=== PATIENT | male | born 1935 | race Caucasian/White ===

== ENCOUNTER 2018-08-03 11:45 | Inpatient (IN) | payer OTHER ==
--- NOTE | 2018-08-03 12:03 | PDOC ---
History of Present Illness - General Chief Complaint: Shortness of Breath Stated Complaint: Shortness of Breath Time Seen by Provider: 08/03/18 12:02 - History of Present Illness Initial Comments: 08/03/18 13:26 The patient is an 83 year old male with a history of HTN, HLD, CAD, RI, COPD who presents for evaluation of shortness of breath and lightheadedness. The patient reports a several week history of gradually worsening shortness of breath worse with exertion despite use of his home inhalers. He notes an associated worsening non-productive cough as well. Throughout this period of time, he also notes lightheadedness and dizziness that is worse with standing and bending over. He was being evaluated by his primary care provider Dr. Ortiz who referred the patient to the ED for further evaluation and admission. The patient otherwise denies fevers, chills, chest pain, nausea, vomiting, abdominal pain, or changes with urination or bowel movements. Past History - Past Medical History Allergies/Adverse Reactions: Allergies Allergy/AdvReac Type Severity Reaction Status Date / Time No Known Drug Allergies Allergy Verified 08/03/18 12:10 Home Medications: Ambulatory Orders Albuterol Sulfate [Proair Hfa] 2 puff IH Q4H PRN 08/03/18 Aspirin [Aspirin EC] 81 mg PO DAILY 08/03/18 Budesonide/Formeterol Fumarate [SYMBICORT 160/4.5mcg -] 1 inh PO BID 08/03/18 Fluticasone Propionate [Flonase Allergy Relief] 9.9 ml NS TID PRN 08/03/18 Pravastatin Sodium 20 mg PO HS 08/03/18 Anemia: No Asthma: No Cancer: No Cardiac Disorders: Yes (RI X 3; CAD) CVA: No COPD: Yes (no meds, continues to smoke) CHF: No Dementia: No Diabetes: No GI Disorders: No Disorders: No HTN: Yes Hypercholesterolemia: Yes Liver Disease: No Seizures: No Thyroid Disease: No - Surgical History Abdominal Surgery: No Appendectomy: No Cardiac Surgery: Yes (CABG; JUAN A CAROTID ENDARTERECTOMY) Cholecystectomy: No Lung Surgery: No Neurologic Surgery: No Orthopedic Surgery: No - Suicide/Smoking/Psychosocial Hx Smoking Status: No Smoking History: Current every day smoker Have you smoked in the past 12 months: Yes Number of Cigarettes Smoked Daily: 20 Cigars Per Day: 10 'Breaking Loose' booklet given: 10/07/11 Hx Alcohol Use: No Drug/Substance Use Hx: No Substance Use Type: None Hx Substance Use Treatment: No Review of Systems - Review of Systems Comments:: 08/03/18 13:28 Constitutional: No fevers, chills, fatigue, malaise HEENT: No Rhinorrhea, nasal congestion, visual changes Cardiovascular: Lightheadedness. Pre-syncope. No chest pain, syncope, palpitations, Respiratory: Non-productive cough, SOB. No Hemoptysis, Gastrointestinal: No Abdominal pain, Nausea, Vomiting, Constipation, Diarrhea, Melena Genitourinary: No Dysuria, Frequency, Urgency, Hesitancy, Hematuria, Flank pain Musculoskeletal: No Myalgia, arthralgia Skin: No rashes, itching, bruising, pallor Neurologic: No Headache, Dizziness, Numbness, Weakness, or Tingling Psychiatric: No Hallucinations. No SI or HI *Physical Exam - Physical Exam Comments: 08/03/18 13:30 General Appearance: Nourished. No Apparent Distress HEENT: No Pharyngeal Erythema, Tonsillar Exudate, Tonsillar Erythema, or Nystagmus. Neck: No Cervical Lymphadenopathy Respiratory/Chest: Normal Breath Sounds. Rales auscultated at the right lung base. No Rhonchi, Wheezing Cardiovascular: Regular Rhythm, Regular Rate. No Murmur, Gallops, Rubs Gastrointestinal/Abdominal: Normal Bowel Sounds, Soft. No Guarding, Rebound, Tenderness Musculoskeletal: No CVA Tenderness Extremity: Normal Capillary Refill Integumentary: Normal Color, Dry, Warm Neurologic: Fully Oriented, Alert, Normal Mood/Affect, Normal Response, Heart Score/ECG Review #1 ECG reviewed & interpreted by me at: 13:31 08/03/18 13:31 HR 105 WV 184 QRS 134 QTc 502 Sinus Tachycardia with premature supraventricular complexes Right bundle branch block No Acute ST Changes ED Treatment Course - LABORATORY CBC & Chemistry Diagram: 08/03/18 12:05 08/03/18 12:07 Medical Decision Making - Medical Decision Making 08/03/18 13:32 The patient is an 83 year old male with a history of HTN, HLD, CAD, RI, COPD who presents for evaluation of shortness of breath and lightheadedness. Differential includes but is not limited to: COPD, ACS, CHF, Pneumonia, Infectious, Metabolic Derangement. Given the patient's history and physical exam, we will obtain a cbc, cmp, troponin, bnp, ekg, chest plain film to evaluate further. We will treat with duonebs and solumedrol in the meantime and continue to monitor and reassess while here in the ED. 08/03/18 13:33 CBC, cmp, troponin are unremarkable. Chest plain film demonstrates questionable right base findings as read by our radiologist. We will obtain a CT chest to evaluate further. 08/03/18 14:[address] demonstrates right lower lobe infiltrate as read by our radiologist. We will treat the patient with vanc and zosyn given his frequent time spent caring for his in a NH. The patient will require admission for further management. We discussed the case with the admitting team who accepted the patient for admission. *DC/Admit/Observation/Transfer Diagnosis at time of Disposition: COPD (chronic obstructive pulmonary disease) Qualifiers: COPD type: unspecified COPD Qualified Code(s): J44.9 - Chronic obstructive pulmonary disease, unspecified Pneumonia Qualifiers: Pneumonia type: due to unspecified organism Laterality: unspecified laterality Lung location: unspecified part of lung Qualified Code(s): J18.9 - Pneumonia, unspecified organism - Discharge Dispostion Condition at time of disposition: Stable Decision to Admit order: Yes - Referrals - Patient Instructions - Post Discharge Activity
[2018-08-03 12:17] LABS: BASO % 0.5 % (0-2.0); EOS % 2.2 % (0-4.5); HEMATOCRIT 43.9 % (35.4-49); HEMOGLOBIN 14.8 GM/dL (11.7-16.9); LYMPH % 14.5 % (8-40); MCH 31.1 pg (25.7-33.7); MCHC 33.7 g/dl (32.0-35.9); MEAN CELL VOLUME 92.3 fl (80-96); MONO % 9.6 % (3.8-10.2); NEUT % 73.2 % (42.8-82.8); PLATELET COUNT 151 K/MM3 (134-434); RBC 4.76 M/mm3 (4.00-5.60); RDW 14.8 % (11.9-15.9); WHITE BLOOD COUNT 6.6 K/mm3 (4.0-10.0)
[2018-08-03] MEDS ORDERED: ALBUTEROL SO4 2.5/IPRATROPIUM 0.5 INH SOL 3 ML VIAL.NEB. NEB ONE ×3 (12:34→13:46)
[2018-08-03] MEDS ORDERED: methylPREDNISolone NA SUCC 125 MG/2 ML VIAL IVPUSH ONE (12:49)
[2018-08-03 12:53] LABS: ALBUMIN 3.4 g/dl (3.4-5.0); ALK PHOS 115 U/L (45-117); ANION GAP 10 MMOL/L (8-16); BILIRUBIN,TOTAL 0.6 mg/dL (0.2-1); CALCIUM 8.9 mg/dL (8.5-10.1); CHLORIDE 104 mmol/L (98-107); CO2 23 mmol/L (21-32); GLUCOSE,RANDOM 94 mg/dL (74-106); N-TERMINAL BNP 718.3 pg/ml (5-450); POTASSIUM 3.7 mmol/L (3.5-5.1); SGOT/AST 24 U/L (15-37); SGPT/ALT 21 U/L (13-61); SODIUM 137 mmol/L (136-145); TOT PROT 7.2 g/dl (6.4-8.2)
[2018-08-03] MEDS ORDERED: methylPREDNISolone NA SUCC 125 MG/2 ML VIAL ONE (15:06)
[2018-08-03] MEDS ORDERED: PIPERACILLIN/TAZOB 4.5 GM 4.5 GM in DEXTROSE 5%-WATER 100 ML IVPB ONE (15:12)
[2018-08-03] MEDS ORDERED: VANCOMYCIN 1,000 MG in DEXTROSE 5%-WATER - 250 ML IVPB ONE (15:12)
--- NOTE | 2018-08-03 15:31 | PDOC ---
Documentation entered by Danitza Mendoza SCRIBE, acting as scribe for Toma Tran MD. Toma Tran MD: This documentation has been prepared by the edisonibe, Danitza Mendoza SCRIBE, under my direction and personally reviewed by me in its entirety. I confirm that the documentation accurately reflects all work, treatment, procedures, and medical decision making performed by me. Attending Attestation - Resident Resident Name: Kyle Vasquez - ED Attending Attestation I have performed the following: I have examined & evaluated the patient, The case was reviewed & discussed with the resident, I agree w/resident's findings & plan, Exceptions are as noted - HPI HPI: 08/03/18 14:25 The patient is an 83-year-old male with a past medical history significant for COPD, HTN, HLD presents to the emergency department with worsening shortness of breath and lightheadedness. The patient reports hes been having 4 years of intermittent shortness of breath, which further exacerbated in the last 2 weeks. The patient reports following up with Dr. Huber, who prescribed the patient medication. The patient reports secondary to medication davey he was unable to purchase the medication. The patient reports hes also been having lightheadedness with standing up and moving around. The patient reports following up with PCP Dr. Ortiz, who has noticed some periods of hypotension and referred the patient to the ER for further management. The patient reports in a matter of 2 months, he has lost 74 pounds. Denies fever. Allergies: nkda Surgical History: Per patient, CABG, multiple biopsies Social history: Current everyday smoker, no reported use of alcohol or recreational drugs. The patient reports for the past 8 years hes been going to [facility] to visit her , 7 days a week for about 7 hours. PCP: Dr. Ortiz. Wood Boatbuilder: Dr. Huber. - Physicial Exam PE: 08/03/18 14:26 GENERAL: +Cachectic Awake, alert and oriented. The patient is in no acute distress. ENT: Ears normal, nares patent, oropharynx clear without exudates. +dry mucous membranes. NECK: Normal range of motion, supple, no nuchal rigidity LUNGS: +faint breath sounds expiratory wheezing after the nebulizer use. clear to auscultation bilaterally. no crackles. HEART: soft heart sounds, Regular rate and rhythm, normal S1 and S2 without murmur, rub or gallop. ABDOMEN: Soft, nontender, normoactive bowel sounds. No guarding, no rebound. No masses palpable. EXTREMITIES: Normal range of motion, no edema. NEUROLOGICAL: Answering all questions. Cranial nerves II through XII grossly intact. Normal speech. No focal neurological deficits. SKIN: Warm, Dry, normal turgor, no rashes or lesions noted. - Medical Decision Making 08/03/18 13:52 is an 83 yo M who presents with a complaint of shortness of breath. Pt reports a gradual worsening of his breathing over the past 4 years He has had severe shortness of breath over the past week No fevers that he is aware of No chest pain Pt assessed and given Neb treatment Upon my assessment, pt states he feels better than when he first got here RRR No abd tenderness EKG - Sinus tachycardia, rate of 105 bpm, RBBB, no st elevation or depression, right axis deviation 08/03/18 15:27 08/03/18 15:29 Laboratory Tests 08/03/18 08/03/18 12:05 12:07 WBC 6.6 Hgb 14.8 Hct 43.9 Plt Count 151 BUN 17.0 Creatinine 1.0 Creatine Kinase 96 Troponin I < 0.02 B-Natriuretic Peptide 718.3 H CXR: RLL infiltrate CT Chest: RLL consolidation Will give Vanc/Zosyn Given Nebs and Solumedrol Admit
[2018-08-03] MEDS ORDERED: PIPERACILLIN/TAZOB 4.5 GM 4.5 GM/100 ML BAG IVPB ONE (15:41)
[2018-08-03] MEDS ORDERED: VANCOMYCIN 1 GRAM (PRE-DOCKED) 1,000 MG/250 ML BAG IVPB ONE (15:42)
--- NOTE | 2018-08-03 16:48 | HP ---
CHIEF COMPLAINT: dizziness, shortness of breath, sent by PCP PCP: Dr. Ortiz Pulmonary: Dr. Huber Process Technician: Dr. Hernández HISTORY OF PRESENT ILLNESS: 83 yom with PMHx of CAD s/p CABG/?MVR(per CT Chest read), COPD (emphysema/ Bronchiectasis) on prn home oxygen (not compliant), active heavy smoker, dizziness/orthostatic hypotension (off BP meds), HLD, RUL Pul nodule, Subcarinal mass s/p biopsy x2 (Benign), thyroid nodule was seen by PCP today with 2 weeks of progressive dizziness, more positional, decreased oral intake. Reports over last 3-4 days has been having progressive dyspnea, had some chills last week. Has chronic cough with whitish sputum with no recent change. Visits his daily at [facility] for almost 12 hours. Denies any sick contacts, recent antibiotics or travel. Currently feels better. 12 point ROS done, pos for chronic diarrhea (with reported extensive GI w/u in the past), ER course was notable for: (1) SOlumedrol 125 mg IV (2) zosyn/vanco x1 (3) CT chest with RLL concerns Recent Travel: Denies PAST MEDICAL HISTORY: CAD s/p CABG, COPD (emphysema/Bronchiectasis) on prn home oxygen (not compliant), active heavy smoker, dizziness/orthostatic hypotension (off BP meds), HLD, RUL Pul nodule, Subcarinal mass s/p biopsy x2 ( Benign), thyroid nodule PAST SURGICAL HISTORY: CABG, bilateral CEA with Dr. Fraser, sinus surgeries Social History: Smoking: Heavy smoker for 71 years, 3-4 PPD earlier, now 1.5 PPD (reports does not use with oxygen) Alcohol: quit 50 years ago Drugs: Denies Retired, lives at home, independent in ADLs, uses cane. 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 Family History: Allergies No Known Drug Allergies Allergy (Verified 08/03/18 12:10) HOME MEDICATIONS: Home Medications Medication Instructions Recorded Albuterol Sulfate [Proair Hfa] 2 puff IH Q4H PRN 08/03/18 Aspirin [Aspirin EC] 81 mg PO DAILY 08/03/18 Budesonide/Formeterol Fumarate 1 inh PO BID 08/03/18 [SYMBICORT 160/4.5mcg -] Fluticasone Propionate [Flonase 9.9 ml NS TID PRN 08/03/18 Allergy Relief] Pravastatin Sodium 20 mg PO HS 08/03/18 REVIEW OF SYSTEMS 12 point ROS done, per HPI PHYSICAL EXAMINATION Vital Signs - 24 hr 08/03/18 08/03/18 11:49 15:15 Pulse Rate 95 H Pulse Rate [ 86 Right] Respiratory 22 H 22 H Rate Blood Pressure 125/70 Blood Pressure 109/57 L [Right Arm] O2 Sat by Pulse 95 92 L Oximetry (%) Intake & Output 07/31/18 08/01/18 08/02/18 08/03/18 23:59 23:59 23:59 23:59 Weight 164 lb GENERAL:AAOX3, mild tachypnea and use of accessory muscles of respiration, able to speak in full sentences HEAD: Normal with no signs of trauma. EYES: Pupils equal, round and reactive to light, extraocular movements intact, sclera anicteric, conjunctiva clear. No lid lag. EARS, NOSE, THROAT: Ears normal, nares patent, oropharynx clear without exudates. Moist mucous membranes. NECK: soft, supple, no JVD noted LUNGS: Right basilar rales, good air entry bilaterally, no wheezing ntoed HEART: Regular rate and rhythm, normal S1 and S2 ABDOMEN: Soft, nontender, not distended, normoactive bowel sounds, no guarding, no rebound, no masses. MUSCULOSKELETAL: Normal range of motion at all joints. No bony deformities or tenderness. No CVA tenderness. UPPER EXTREMITIES: 2+ pulses, warm, well-perfused. No cyanosis. No clubbing. No peripheral edema, multiple ecchymotic areas. LOWER EXTREMITIES: trace pedal edema around ankles, varicosities, ecchymotic areas, no calf tenderness NEUROLOGICAL: AAOx3, Cranial nerves II-XII intact. Normal speech. Gait not observed PSYCHIATRIC: Cooperative. Good eye contact. Appropriate mood and affect. SKIN: Warm, dry, normal turgor, no rashes or lesions noted, normal capillary refill. Laboratory Results - last 24 hr 08/03/18 08/03/18 12:05 12:07 WBC 6.6 RBC 4.76 Hgb 14.8 Hct 43.9 MCV 92.3 MCH 31.1 MCHC 33.7 RDW 14.8 Plt Count 151 MPV 9.0 Absolute Neuts (auto) 4.8 Neutrophils % 73.2 Lymphocytes % 14.5 Monocytes % 9.6 Eosinophils % 2.2 Basophils % 0.5 Nucleated RBC % 0 Sodium 137 Potassium 3.7 Chloride 104 Carbon Dioxide 23 Anion Gap 10 BUN 17.0 Creatinine 1.0 Est GFR (CKD-EPI)AfAm 81.45 Est GFR (CKD-EPI)NonAf 70.27 Random Glucose 94 Calcium 8.9 Total Bilirubin 0.6 AST 24 ALT 21 Alkaline Phosphatase 115 Creatine Kinase 96 Troponin I < 0.02 B-Natriuretic Peptide 718.3 H Total Protein 7.2 Albumin 3.4 EKG NSR, QTc 500s, RBBB, no acute ST-T changes CXR and CT Chest results reviewed ASSESSMENT/PLAN: 83 yom with PMHx of CAD s/p CABG/?MVR(per CT Chest read), COPD (emphysema/ Bronchiectasis) on prn home oxygen (not compliant), active heavy smoker, dizziness/orthostatic hypotension (off BP meds), HLD, RUL Pul nodule, Subcarinal mass s/p biopsy x2 (Benign), thyroid nodule admitted with RLL PNA, COPD exac and dizziness. 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 Zosyn/doxycycline, ID input. Blood/sputum cultures, urine PNA studies. IV solumedrol, Standing and prn nebs. Pulmonary consult. Gentle hydration (last 2D echo 09/2016 with EF 55-60%) Continue statin, symbicort DVTPPX lovenox GIPPX with PPI while on high dose steroids Dispo will need PT eval prior to dc Admit to [facility] Plan discussed with patient in detail, all questions answered. Total admit time 65 min. Visit type - Emergency Visit Emergency Visit: Yes ED Registration Date: 08/03/18 Care time: The patient presented to the Emergency Department on the above date and was hospitalized for further evaluation of their emergent condition. - New Patient This patient is new to me today: Yes Date on this admission: 08/03/18 - Critical Care Critical Care patient: No
[2018-08-03] MEDS ORDERED: ACETAMINOPHEN 325 MG TABLET (FP) PO PRN (16:55)
[2018-08-03] MEDS ORDERED: ALBUTEROL SO4 0.083% IH SOL 2.5 MG/3 ML VIAL.NEB. NEB PRN (16:55)
[2018-08-03] MEDS ORDERED: DOCUSATE SODIUM 100 MG CAPSULE (FP) PO PRN (16:55)
[2018-08-03] MEDS ORDERED: SODIUM CHLORIDE 1,000 ML IV SCH (17:00)
[2018-08-03 17:55] VITALS: BMI 22.9
--- NOTE | 2018-08-03 18:10 | PN ---
Progress Note (short form) - Note Progress Note: PULMONARY CONSULTATION DICTATED 08/03/18 IMP RLL PNEUMONIA ADVANCED COPD O2 DEPENDENT ASHD S/P CABG HTN TOBACCO ABUSE PLAN IV ABX O2 INHALED BRONCHODILATORS MEDROL CULTURES ABG DR RIOJAS Problem List - Problems (1) ASHD (arteriosclerotic heart disease) Code(s): I25.10 - ATHSCL HEART DISEASE OF [place] CORONARY ARTERY W/O ANG PCTRS (2) COPD (chronic obstructive pulmonary disease) Code(s): J44.9 - CHRONIC OBSTRUCTIVE PULMONARY DISEASE, UNSPECIFIED Qualifiers: COPD type: unspecified COPD Qualified Code(s): J44.9 - Chronic obstructive pulmonary disease, unspecified (3) Pneumonia Code(s): J18.9 - PNEUMONIA, UNSPECIFIED ORGANISM Qualifiers: Pneumonia type: due to unspecified organism Laterality: unspecified laterality Lung location: unspecified part of lung Qualified Code(s): J18.9 - Pneumonia, unspecified organism (4) S/P CABG x 3 Code(s): Z95.1 - PRESENCE OF AORTOCORONARY BYPASS GRAFT
[2018-08-03] MEDS: methylPREDNISolone NA SUCC 40 MG/1 ML VIAL IVPUSH SCH (18:12)
[2018-08-03 19:53] LABS: ARTERIAL BLD GAS O2 SATURATION 97.4 % (95-98); ARTERIAL BLOOD GAS BASE EXCESS -1.5 meq/l (-2-2); ARTERIAL BLOOD GAS PO2 92.4 mmHg (80-105); ARTERIAL BLOOD GAS pH 7.46 (7.35-7.45)
[2018-08-03 19:56] LABS: ALLENS TEST POSITIVE
[2018-08-03] MEDS ORDERED: DEXTROSE 5%-WATER 100 ML IVPB ONE (22:23)
[2018-08-03] MEDS ORDERED: PIPERACILLIN/TAZOBACTAM 4.5 GM VIAL IVPB ONE (22:23)
[2018-08-03] MEDS ORDERED: PT OWN MED DRAWER 7, Y5N ONE (22:23)
[2018-08-03] MEDS: PIPERACILLIN/TAZOB 4.5 GM 4.5 GM in DEXTROSE 5%-WATER 100 ML IVPB SCH (22:38)
[2018-08-03] MEDS: DOXYCYCLINE INJECTION 100 MG in DEXTROSE 5%-WATER - 100 ML IVPB SCH (23:00)
--- NOTE | 2018-08-04 01:13 | CONS ---
DATE OF CONSULTATION: 08/03/2018 PULMONARY CONSULTATION REFERRING PHYSICIAN: Leandro Boo M.D. HISTORY OF PRESENT ILLNESS: The patient is an 83-year-old white male with a past medical history of COPD on home O2, hypertension, hyperlipidemia, history of subcoronal mass. Biopsy apparently at [place] negative. History of pneumothorax right side status post biopsy, longstanding history of tobacco use, currently still smoking, admitted to [facility] with complaint of 3-4 day history of increasing shortness of breath, cough, chest congestion. Patient states that having past 2 weeks he started noticing increasing shortness of breath. Earlier this week he started developing some chills, fever, low grade chills, also coughed up yellow sputum. He went to see PMD who advised him to go to emergency room. In the ER he was noted to have right lower lobe pneumonia. He was admitted to the hospital and transferred out to medical floor for management. Patient denies any hemoptysis, denies any chest pain, nausea, vomiting, diaphoresis. Denies any recent travel. There is no history of DVT or PE in the past. PAST MEDICAL HISTORY: Again includes advanced COPD on home O2, hypertension, hyperlipidemia . Also ASHD status post CABG. PAST SURGICAL HISTORY: CABG and multiple biopsies. SOCIAL HISTORY: Previously worked in construction history. Tobacco, previously smoked 3 packs per day, now about a pack a day. REVIEW OF SYSTEMS: Positive shortness of breath. Positive cough. No chest pain. No palpitations. No abdominal pain. CURRENT MEDICATIONS: Include Solu-Medrol 40 q.8, Tylenol, doxycycline, piperacillin, Lovenox, albuterol, Colace, and normal saline. PHYSICAL EXAMINATION: GENERAL: The patient is a thin white male, awake, alert, mildly dyspneic but in no acute distress. VITAL SIGNS: He is currently afebrile. Heart rate is 95. Blood pressure 128/ 95, respiratory rate 20, O2 saturation 96% on 2 L. HEENT: Normocephalic, atraumatic. NECK: Supple. HEART: Regular S1, S2. CHEST: A few crackles at the right base. ABDOMEN: Soft, bowel sounds positive. EXTREMITIES: No cyanosis, edema. LABORATORY: WBC is 6.6, hemoglobin 14.8, hematocrit 43.9 with platelet count of 151,000, INR is 1.07. BUN 17, creatinine 1.0. Chest CT reveals right lower lobe infiltrate with cystic changes, most likely, and COPD changes bilaterally. Also subcarinal cystic lesion, unchanged. IMPRESSION: 1. Right lower lobe pneumonia, community acquired. 2. Advanced chronic obstructive pulmonary disease, oxygen dependent. 3. Arteriosclerotic heart disease status post coronary artery bypass graft. 4. Hypertension. 5. Tobacco abuse. PLAN: IV antibiotics. Supplemental O2. Inhaled bronchodilators. Start Solu-Medrol. Obtain cultures. Check arterial blood gases. Legionella urine antigens. f/u chest x-rays YOVANNY RIOJAS M.D. EVANGELISTA/[id number] MTDD
[2018-08-04 01:34] LABS: MAGNESIUM 2.3 mg/dL (1.8-2.4)
[2018-08-04] MEDS: methylPREDNISolone NA SUCC 40 MG/1 ML VIAL IVPUSH SCH ×3 (02:57→17:00)
[2018-08-04] MEDS ORDERED: DEXTROSE 5%-WATER 100 ML IVPB ONE ×2 (05:43→16:23)
[2018-08-04] MEDS ORDERED: PIPERACILLIN/TAZOBACTAM 4.5 GM VIAL IVPB ONE ×3 (05:43→16:23)
[2018-08-04] MEDS: PIPERACILLIN/TAZOB 4.5 GM 4.5 GM in DEXTROSE 5%-WATER 100 ML IVPB SCH ×3 (06:33→17:03)
[2018-08-04 07:33] LABS: BASO % 0.1 % (0-2.0); HEMATOCRIT 41.5 % (35.4-49); HEMOGLOBIN 13.9 GM/dL (11.7-16.9); LYMPH % 8.7 % (8-40); MCH 30.9 pg (25.7-33.7); MCHC 33.4 g/dl (32.0-35.9); MEAN CELL VOLUME 92.4 fl (80-96); MEAN PLT VOLUME 9.4 fl (7.5-11.1); MONO % 3.1 % (3.8-10.2); NEUT % 88.1 % (42.8-82.8); PLATELET COUNT 142 K/MM3 (134-434); RBC 4.49 M/mm3 (4.00-5.60); RDW 15.2 % (11.9-15.9); WHITE BLOOD COUNT 4.7 K/mm3 (4.0-10.0)
[2018-08-04 07:54] LABS: ALBUMIN 3.1 g/dl (3.4-5.0); BILIRUBIN,TOTAL 0.4 mg/dL (0.2-1); BLOOD UREA NITROGEN 14.2 mg/dL (7-18); CALCIUM 8.9 mg/dL (8.5-10.1); CREATININE 0.9 mg/dL (0.55-1.3); MAGNESIUM 2.4 mg/dL (1.8-2.4); PHOSPHOROUS 3.4 mg/dL (2.5-4.9); POTASSIUM 4.1 mmol/L (3.5-5.1); TOT PROT 6.7 g/dl (6.4-8.2)
[2018-08-04] MEDS ORDERED: PT OWN MED DRAWER 7, Y5N ONE (09:23)
[2018-08-04] MEDS ORDERED: ENOXAPARIN NA (PORCINE) 40 MG/0.4 ML DISP.SYRIN SQ SCH (10:00)
[2018-08-04] MEDS: DOXYCYCLINE INJECTION 100 MG in DEXTROSE 5%-WATER - 100 ML IVPB SCH (11:00)
--- NOTE | 2018-08-04 11:12 | CON.ID ---
Consult Consult Specialty:: infectious disease Referred by:: hospitalist Reason for Consultation:: pneumonia - History of Present Illness Chief Complaint: sob, weakness History of Present Illness: 83 yo male pmh copd on home oxygen, active smoker admitted with sob and weakness he noted increased cough last week on - had a bad coughing fit no hemoptysis on Monday he was at the [place] visiting his - goes daily for 7 hours-felt weak and lightheaded and went home and went to bed all day he comes to ED with fatigue, cough and sob no nausea or vomiting feels better today no travel no hemoptysis brown sputum no diarrhea no recent oral antibiotics - History Source History Provided By: Patient, Medical Record Limitations to Obtaining History: No Limitations - Past Medical History Cardio/Vascular: Yes: Hyperlipdemia Pulmonary: Yes: COPD, O2 Dependent Additional Medical History: subcarinal mass s/p biopsy (2) - Past Surgical History Past Surgical History: Yes: CABG (time 3), Carotid Endarterectomy (bilateral) Additional Surgical History: sinus surgery 2013 - Alcohol/Substance Use Hx Alcohol Use: No - Smoking History Smoking history: Current every day smoker Have you smoked in the past 12 months: Yes Aproximately how many cigarettes per day: 20 - Social History Usual Living Arrangement: Alone ADL: Independent Occupation: retired electrician technician Place of : [facility] History of Recent Travel: No Home Medications - Allergies Allergies/Adverse Reactions: Allergies Allergy/AdvReac Type Severity Reaction Status Date / Time No Known Drug Allergies Allergy Verified 08/03/18 12:10 - Home Medications Home Medications: Ambulatory Orders Albuterol Sulfate [Proair Hfa] 2 puff IH Q4H PRN 08/03/18 Aspirin [Aspirin EC] 81 mg PO DAILY 08/03/18 Budesonide/Formeterol Fumarate [SYMBICORT 160/4.5mcg -] 1 inh PO BID 08/03/18 Fluticasone Propionate [Flonase Allergy Relief] 9.9 ml NS TID PRN 08/03/18 Pravastatin Sodium 20 mg PO HS 08/03/18 Family Disease History - Family Disease History Family Disease History: Other: Son (- unknown cause by autopsy) Review of Systems - Review of Systems Constitutional: reports: Unintentional Wgt. Loss Eyes: reports: No Symptoms HENT: reports: No Symptoms Neck: reports: No Symptoms Cardiovascular: denies: Chest Pain, Edema Respiratory: reports: Cough. denies: Hemoptysis Gastrointestinal: reports: No Symptoms. denies: Abdominal Pain Genitourinary: reports: No Symptoms Musculoskeletal: reports: No Symptoms Physical Exam Vital Signs: Vital Signs Temperature 97.9 F 08/04/18 06:00 Pulse Rate 56 L 08/04/18 06:00 Respiratory Rate 20 08/04/18 06:00 Blood Pressure 116/63 08/04/18 06:00 O2 Sat by Pulse Oximetry (%) 96 08/03/18 21:00 Constitutional: Yes: Well Nourished, No Distress, Calm, Thin Eyes: Yes: Conjunctiva Clear, EOM Intact HENT: Yes: Atraumatic, Normocephalic. No: Thrush, Tonsillar Exudate Neck: Yes: Supple, Trachea Midline Cardiovascular: Yes: Regular Rate and Rhythm Respiratory: Yes: Diminished, Rhonchi (bilateral) Gastrointestinal: Yes: Normal Bowel Sounds, Soft ...Rectal Exam: Yes: Deferred Musculoskeletal: Yes: WNL Extremities: Yes: WNL Edema: No Psychiatric: Yes: Alert, Oriented Labs: CBC, BMP 08/04/18 06:35 08/04/18 06:35 cultures pending Imaging - Results Chest X-ray: Report Reviewed, Image Reviewed Cat Scan: Report Reviewed, Image Reviewed Problem List - Problems (1) Pneumonia Code(s): J18.9 - PNEUMONIA, UNSPECIFIED ORGANISM Qualifiers: Pneumonia type: due to unspecified organism Laterality: unspecified laterality Lung location: unspecified part of lung Qualified Code(s): J18.9 - Pneumonia, unspecified organism (2) COPD (chronic obstructive pulmonary disease) Code(s): J44.9 - CHRONIC OBSTRUCTIVE PULMONARY DISEASE, UNSPECIFIED Qualifiers: COPD type: unspecified COPD Qualified Code(s): J44.9 - Chronic obstructive pulmonary disease, unspecified Assessment/Plan oxygen dependent COPD with new RLL pneumonia agree with zosyn /doxycycline send legionella urinary antigens qtc is prolonged- agree with doxycycline f/eu cultures/labs d/w hospitalist
--- NOTE | 2018-08-04 11:49 | PN ---
Progress Note, Physician History of Present Illness: pulmonary alert,oob-chair,less dyspneic,+ moist cough. pt refusing to stay in the hospital ,say personal reasons - Current Medication List Current Medications: Active Medications Acetaminophen (Tylenol -) 650 mg PO Q6H PRN PRN Reason: FEVER Albuterol Sulfate (Ventolin 0.083% Nebulizer Soln -) 1 amp NEB Q4H PRN PRN Reason: SHORT OF BREATH/WHEEZING Last Admin: 08/03/18 19:45 Dose: 1 amp Docusate Sodium (Colace -) 100 mg PO BID PRN PRN Reason: CONSTIPATION Enoxaparin Sodium (Lovenox -) 40 mg SQ DAILY RONALDO Last Admin: 08/04/18 09:32 Dose: 40 mg Doxycycline Hyclate 100 mg/ (Dextrose) 100 mls @ 100 mls/hr IVPB BID RONALDO Last Admin: 08/04/18 11:00 Dose: 100 mls/hr Sodium Chloride (Normal Saline -) 1,000 mls @ 75 mls/hr IV ASDIR RONALDO Last Admin: 08/03/18 18:12 Dose: 75 mls/hr Piperacillin Sod/Tazobactam (Sod 4.5 gm/ Dextrose) 100 mls @ 200 mls/hr IVPB Q8H-IV RONALDO; Protocol Methylprednisolone Sodium Succinate (Solu-Medrol -) 40 mg IVPUSH Q8H-IV RONALDO Last Admin: 08/04/18 09:32 Dose: 40 mg - Objective Vital Signs: Vital Signs Temperature 97.9 F 08/04/18 06:00 Pulse Rate 56 L 08/04/18 06:00 Respiratory Rate 20 08/04/18 06:00 Blood Pressure 116/63 08/04/18 06:00 O2 Sat by Pulse Oximetry (%) 96 08/03/18 21:00 Constitutional: Yes: Well Nourished, Calm Eyes: Yes: WNL HENT: Yes: WNL Neck: Yes: WNL Cardiovascular: Yes: Regular Rate and Rhythm, S1, S2 Respiratory: Yes: Rales (crackles r base) Gastrointestinal: Yes: Normal Bowel Sounds, Soft Extremities: Yes: WNL Edema: No Labs: CBC, BMP 08/04/18 06:35 08/04/18 06:35 Laboratory Tests 08/03/18 19:45 ABG pH 7.46 H ABG pCO2 at Pt Temp 30.0 L ABG pO2 at Pt Temp 92.4 ABG HCO3 20.8 L ABG O2 Sat (Measured) 97.4 Oxygen Flow Rate N/c 2 lpm Problem List - Problems (1) ASHD (arteriosclerotic heart disease) Code(s): I25.10 - ATHSCL HEART DISEASE OF [place] CORONARY ARTERY W/O ANG PCTRS (2) COPD (chronic obstructive pulmonary disease) Code(s): J44.9 - CHRONIC OBSTRUCTIVE PULMONARY DISEASE, UNSPECIFIED Qualifiers: COPD type: unspecified COPD Qualified Code(s): J44.9 - Chronic obstructive pulmonary disease, unspecified (3) Pneumonia Code(s): J18.9 - PNEUMONIA, UNSPECIFIED ORGANISM Qualifiers: Pneumonia type: due to unspecified organism Laterality: unspecified laterality Lung location: unspecified part of lung Qualified Code(s): J18.9 - Pneumonia, unspecified organism (4) S/P CABG x 3 Code(s): Z95.1 - PRESENCE OF AORTOCORONARY BYPASS GRAFT Assessment/Plan IMP RLL PNEUMONIA ADVANCED COPD O2 DEPENDENT ASHD S/P CABG HTN TOBACCO ABUSE PLAN ABX O2 INHALED BRONCHODILATORS PREDNISONE PT ADVISED TO STAY IN HOSP FOR CONTINUED IV ABX,STEROIDS,BD,ADVISED OF RISK OF LEAVING. DR RIOJAS Problem List - Problems (1) ASHD (arteriosclerotic heart disease) Code(s): I25.10 - ATHSCL HEART DISEASE OF [place] CORONARY ARTERY W/O ANG PCTRS (2) COPD (chronic obstructive pulmonary disease) Code(s): J44.9 - CHRONIC OBSTRUCTIVE PULMONARY DISEASE, UNSPECIFIED Qualifiers: COPD type: unspecified COPD Qualified Code(s): J44.9 - Chronic obstructive pulmonary disease, unspecified (3) Pneumonia Code(s): J18.9 - PNEUMONIA, UNSPECIFIED ORGANISM Qualifiers: Pneumonia type: due to unspecified organism Laterality: unspecified laterality Lung location: unspecified part of lung Qualified Code(s): J18.9 - Pneumonia, unspecified organism (4) S/P CABG x 3 Code(s): Z95.1 - PRESENCE OF AORTOCORONARY BYPASS GRAFT
[2018-08-04] MEDS ORDERED: DEXTROSE 5%-WATER 200 ML IVPB ONE (12:41)
--- NOTE | 2018-08-04 15:15 | PN ---
Physical Exam: SUBJECTIVE: Patient seen and examined, breathing improved, still with cough and sputum, no new complaints. OBJECTIVE: Vital Signs Period Temp Pulse Resp BP Sys/Max Pulse Ox Last 24 Hr 97.8 F-99.5 F 56-95 12-22 98-128/57-95 92-97 Intake & Output 08/01/18 08/02/18 08/03/18 08/04/18 23:59 23:59 23:59 23:59 Intake Total 300 525 Balance 300 525 Weight 142 lb 4.8 oz 142 lb 1 oz GENERAL: sitting in bed, improved tachypnea CVS:S1s2 regular Chest: improved air entry, right basilar rales, no wheezing Abdomen:soft, NT, ND Extremities: no edema SKIN: Warm, dry, normal turgor, no rashes or lesions noted Laboratory Results - last 24 hr 08/03/18 08/03/18 08/03/18 12:07 19:45 20:00 WBC RBC Hgb Hct MCV MCH MCHC RDW Plt Count MPV Absolute Neuts (auto) Neutrophils % Lymphocytes % Monocytes % Eosinophils % Basophils % Nucleated RBC % Anticoagulation Therapy No Result Required. Puncture Site Left radial ABG pH 7.46 H ABG pCO2 at Pt Temp 30.0 L ABG pO2 at Pt Temp 92.4 ABG HCO3 20.8 L ABG O2 Sat (Measured) 97.4 ABG O2 Content 19.5 ABG Base Excess -1.5 Flip Test Positive O2 Delivery Device N/c Oxygen Flow Rate N/c 2 lpm Vent Mode No Result Required. Vent Rate No Result Required. Mechanical Rate No Result Required. Pressure Support Vent No Result Required. Sodium 137 Potassium 3.7 Chloride 104 Carbon Dioxide 23 Anion Gap 10 BUN 17.0 Creatinine 1.0 Est GFR (CKD-EPI)AfAm 81.45 Est GFR (CKD-EPI)NonAf 70.27 Random Glucose 94 Calcium 8.9 Phosphorus Magnesium 2.3 2.2 Total Bilirubin 0.6 AST 24 ALT 21 Alkaline Phosphatase 115 Creatine Kinase 96 Troponin I < 0.02 B-Natriuretic Peptide 718.3 H Total Protein 7.2 Albumin 3.4 08/04/18 08/04/18 06:35 06:35 WBC 4.7 RBC 4.49 Hgb 13.9 Hct 41.5 MCV 92.4 MCH 30.9 MCHC 33.4 RDW 15.2 Plt Count 142 MPV 9.4 Absolute Neuts (auto) 4.1 Neutrophils % 88.1 H D Lymphocytes % 8.7 D Monocytes % 3.1 L Eosinophils % 0.0 D Basophils % 0.1 Nucleated RBC % 0 Anticoagulation Therapy Puncture Site ABG pH ABG pCO2 at Pt Temp ABG pO2 at Pt Temp ABG HCO3 ABG O2 Sat (Measured) ABG O2 Content ABG Base Excess Flip Test O2 Delivery Device Oxygen Flow Rate Vent Mode Vent Rate Mechanical Rate Pressure Support Vent Sodium 139 Potassium 4.1 Chloride 106 Carbon Dioxide 24 Anion Gap 9 BUN 14.2 Creatinine 0.9 Est GFR (CKD-EPI)AfAm 92.51 Est GFR (CKD-EPI)NonAf 79.82 Random Glucose 138 H Calcium 8.9 Phosphorus 3.4 Magnesium 2.4 Total Bilirubin 0.4 AST 14 L ALT 20 Alkaline Phosphatase 102 Creatine Kinase Troponin I B-Natriuretic Peptide Total Protein 6.7 Albumin 3.1 L Active Medications Generic Name Dose Route Start Last Admin Trade Name Freq PRN Reason Stop Dose Admin Acetaminophen 650 mg 08/03/18 16:55 Tylenol - PO Q6H PRN FEVER Albuterol Sulfate 1 amp 08/03/18 16:55 08/03/18 19:45 Ventolin 0.083% Nebulizer Soln - NEB 1 amp Q4H PRN Administration SHORT OF BREATH/WHEEZING Docusate Sodium 100 mg 08/03/18 16:55 Colace - PO BID PRN CONSTIPATION Enoxaparin Sodium 40 mg 08/04/18 10:00 08/04/18 09:32 Lovenox - SQ 40 mg DAILY RONALDO Administration Doxycycline Hyclate 100 mg/ 100 mls @ 100 mls/hr 08/03/18 22:00 08/04/18 11: 00 Dextrose IVPB 100 mls/hr BID RONALDO Administration Sodium Chloride 1,000 mls @ 75 mls/hr 08/03/18 17:00 08/03/18 18:12 Normal Saline - IV 75 mls/hr ASDIR RONALDO Administration Piperacillin Sod/Tazobactam 100 mls @ 200 mls/hr 08/04/18 11:45 08/04/18 12: 40 Sod 4.5 gm/ Dextrose IVPB 200 mls/hr Q8H-IV RONALDO Administration Protocol Methylprednisolone Sodium Succinate 40 mg 08/03/18 18:00 08/04/18 09:32 Solu-Medrol - IVPUSH 40 mg Q8H-IV RONALDO Administration CT chest results reviewed Microbiology 08/04/18 10:00 Sputum - Expectorated Gram Stain - Final ASSESSMENT/PLAN: 83 yom with PMHx of CAD s/p CABG/?MVR(per CT Chest read), COPD (emphysema/ Bronchiectasis) on prn home oxygen (not compliant), active heavy smoker, dizziness/orthostatic hypotension (off BP meds), HLD, RUL Pul nodule, Subcarinal mass s/p biopsy x2 (Benign), thyroid nodule admitted with RLL PNA, COPD exac and dizziness. -RLL PNA, r/o HCAP given extensive time spent at [place] with -Acute COPD exacerbation -Acute on chronic hypoxic +/- hypercarbic respiratory failure -Dizziness -Dehydration -Prolonged QTc -HLD -Right lung apex pulmonary nodule -CAD s/p CABG/?MVR (Per CT Chest read today) -Subcarinal mass s/p biopsy x 2 (Benign) -Thyroid nodule Plan; ID/pulmonary input noted Zosyn/doxycycline. Blood cx. Sputum cx. Urine PNA studies. Slow medrol taper Standing and prn nebs. Dc IVF. Continue statin, symbicort DVTPPX lovenox GIPPX with PPI while on high dose steroids Dispo will need PT eval prior to dc patient expressed wishes about leaving AMA, risks of leaving including worsening infection, sepsis, respiratory failure and were discussed, patient relayed full understanding of the risks and able to repeat back to me. Discussed with Dr. Wright, will provide with augmentin/doxycycline if patient plans to leave AMA. Also prednisone taper and nebs. Discussed witnessed by RN. Visit type - Emergency Visit Emergency Visit: Yes ED Registration Date: 08/03/18 Care time: The patient presented to the Emergency Department on the above date and was hospitalized for further evaluation of their emergent condition. - New Patient This patient is new to me today: No - Critical Care Critical Care patient: No - Discharge Referral [facility]erred to [facility] No
[2018-08-04 15:47] VITALS: BP 125/61; PULSE 85; TEMP 97.8
--- NOTE | 2018-08-04 17:58 | DS ---
Physical Exam: SUBJECTIVE: Patient seen and examined, breathing improved, still cough with sputum, OBJECTIVE: Vital Signs Period Temp Pulse Resp BP Sys/Max Pulse Ox Last 24 Hr 97.8 F-99.5 F 56-85 20-20 106-125/61-63 96 PHYSICAL EXAM GENERAL: sitting in bed, improved tachypnea CVS:S1s2 regular Chest: improved air entry, right basilar rales, no wheezing Abdomen:soft, NT, ND Extremities: no edema SKIN: Warm, dry, normal turgor, no rashes or lesions noted Psych: pleasant Neuro: AAOx3 LABS Laboratory Results - last 24 hr 08/03/18 08/03/18 08/03/18 12:07 19:45 20:00 WBC RBC Hgb Hct MCV MCH MCHC RDW Plt Count MPV Absolute Neuts (auto) Neutrophils % Lymphocytes % Monocytes % Eosinophils % Basophils % Nucleated RBC % Anticoagulation Therapy No Result Required. Puncture Site Left radial ABG pH 7.46 H ABG pCO2 at Pt Temp 30.0 L ABG pO2 at Pt Temp 92.4 ABG HCO3 20.8 L ABG O2 Sat (Measured) 97.4 ABG O2 Content 19.5 ABG Base Excess -1.5 Flip Test Positive O2 Delivery Device N/c Oxygen Flow Rate N/c 2 lpm Vent Mode No Result Required. Vent Rate No Result Required. Mechanical Rate No Result Required. Pressure Support Vent No Result Required. Sodium 137 Potassium 3.7 Chloride 104 Carbon Dioxide 23 Anion Gap 10 BUN 17.0 Creatinine 1.0 Est GFR (CKD-EPI)AfAm 81.45 Est GFR (CKD-EPI)NonAf 70.27 Random Glucose 94 Calcium 8.9 Phosphorus Magnesium 2.3 2.2 Total Bilirubin 0.6 AST 24 ALT 21 Alkaline Phosphatase 115 Creatine Kinase 96 Troponin I < 0.02 B-Natriuretic Peptide 718.3 H Total Protein 7.2 Albumin 3.4 08/04/18 08/04/18 06:35 06:35 WBC 4.7 RBC 4.49 Hgb 13.9 Hct 41.5 MCV 92.4 MCH 30.9 MCHC 33.4 RDW 15.2 Plt Count 142 MPV 9.4 Absolute Neuts (auto) 4.1 Neutrophils % 88.1 H D Lymphocytes % 8.7 D Monocytes % 3.1 L Eosinophils % 0.0 D Basophils % 0.1 Nucleated RBC % 0 Anticoagulation Therapy Puncture Site ABG pH ABG pCO2 at Pt Temp ABG pO2 at Pt Temp ABG HCO3 ABG O2 Sat (Measured) ABG O2 Content ABG Base Excess Flip Test O2 Delivery Device Oxygen Flow Rate Vent Mode Vent Rate Mechanical Rate Pressure Support Vent Sodium 139 Potassium 4.1 Chloride 106 Carbon Dioxide 24 Anion Gap 9 BUN 14.2 Creatinine 0.9 Est GFR (CKD-EPI)AfAm 92.51 Est GFR (CKD-EPI)NonAf 79.82 Random Glucose 138 H Calcium 8.9 Phosphorus 3.4 Magnesium 2.4 Total Bilirubin 0.4 AST 14 L ALT 20 Alkaline Phosphatase 102 Creatine Kinase Troponin I B-Natriuretic Peptide Total Protein 6.7 Albumin 3.1 L Microbiology 08/03/18 15:35 Blood - Peripheral Venous Blood Culture - Preliminary NO GROWTH OBTAINED AFTER 24 HOURS, INCUBATION TO CONTINUE FOR 4 DAYS. 08/03/18 15:35 Blood - Peripheral Venous Blood Culture - Preliminary NO GROWTH OBTAINED AFTER 24 HOURS, INCUBATION TO CONTINUE FOR 4 DAYS. 08/04/18 10:00 Sputum - Expectorated Gram Stain - Final CT chest: Previously visualized 3 mm nodule in the right lung apex is again seen. Previously visualized nodule in the right lobe, laterally now appears more likely linear density measuring 4.5 mm. Mild to moderate centrilobular emphysema again noted mainly involving the upper lobes. There is interval interstitial thickening and cystic changes in the right lung base with airspace opacities suggestive of pneumonia with a trace of right pleural effusion. No pneumothorax is identified. Included lower neck appears unremarkable. The heart is within normal limits in size. Dense calcification of the coronary arteries are present. A few subcentimeter and borderline mediastinal lymph nodes again seen. Normal size abdominal aorta. Patient is status post median sternotomy, mitral valve replacement and CABG. Previously noted round cystic infracarinal cystic densities again seen measuring approximately 3.4 cm is again seen without interval change in size. However, a small air pocket is now noted anteriorly. Evaluation of the upper abdomen again demonstrates extensive vascular calcifications and a small right renal simple cysts. There is mild dextroscoliosis of the lumbar spine. No compression fracture or subluxation are identified. IMPRESSION: Interval consolidation/pneumonia with cystic changes in the right lung base with a trace of right pleural effusion. Previously described right subcarinal cystic lesion is again seen unchanged in size however , there is now a small air pockets, anteriorly the source of which is not clear on this exam. Correlate clinically to determine further evaluation. HOSPITAL COURSE: Date of Admission:08/03/18 Date of Discharge: 08/04/18 Minutes to complete discharge: 40 Discharge Summary Reason For Visit: COPD PNEUMONIA Current Active Problems ASHD (arteriosclerotic heart disease) (Acute) COPD (chronic obstructive pulmonary disease) (Acute) Pneumonia (Acute) S/P CABG x 3 (Acute) Hospital Course: 83 yom with PMHx of CAD s/p CABG/?MVR(per CT Chest read), COPD (emphysema/ Bronchiectasis) on prn home oxygen (not compliant), active heavy smoker, dizziness/orthostatic hypotension (off BP meds), HLD, RUL Pul nodule, Subcarinal mass s/p biopsy x2 (Benign), thyroid nodule admitted with RLL PNA, COPD exac and dizziness found with RLL PNA and acute COPD exacerbation. Given close contact with residential (where he spent 7 hours daily with his ), he was placed on Zosyn/doxycyline (Prolonged QTc). He was placed IV solumedrol. Pulmonary and infectious disease were consulted. His symptom showed some improvement. However, he expressed wishes to leave AMA, risks were explained and he was provided with 7 days of augmentin/doxycycline per ID recommendation and prednisone taper and advised to use continuous home oxygen 2-3 L for now. Condition: Unchanged/Unknown - Instructions Diet, Activity, Other Instructions: Please note that you are leaving against medical advice. You are strongly encouraged to stay in the hospital for intravenous steroids, antibiotics and breathing treatment and close monitoring. Risks of leaving including but not limited to worsening infection, pneumonia, respiratory failure, sepsis and have been explained. You are provided with following prescriptions, however please note that the treatment may not be enough. Augmentin twice daily 1 week prescription Doxycycline twice daily 1 week prescription Prednisone taper as follows: 60 mg daily for 3 days, then 50 mg daily for 3 days, then 40 mg daily for 3 days , then 30 mg daily for 3 days and 20 mg daily for 3 days. Please note that this regimen may not be sufficient to manage your symptoms. Use your home oxygen 2-3 Liters continuous for now till further advised by your doctor. Avoid tanning or prolonged sun exposure on doxycycline Also your blood and sputum cultures have not been reported yet. which can take 48 hours to 5 days Also strictly encourage to call Dr. Ortiz Disposition: AGAINST MEDICAL ADVICE - Home Medications Comprehensive Discharge Medication List: Ambulatory Orders Albuterol Sulfate [Proair Hfa] 2 puff IH Q4H PRN 08/03/18 Aspirin [Aspirin EC] 81 mg PO DAILY 08/03/18 Budesonide/Formeterol Fumarate [SYMBICORT 160/4.5mcg -] 1 inh PO BID 08/03/18 Fluticasone Propionate [Flonase Allergy Relief] 9.9 ml NS TID PRN 08/03/18 Pravastatin Sodium 20 mg PO HS 08/03/18 Albuterol 2.5/Ipratropium 0.5 [Duoneb -] 1 neb IH QID PRN #1 vial.neb. 08/04/18 Amoxicillin/Potassium Clav [Augmentin 875-125 Tablet] 1 each PO BID #14 tablet 08/04/18 Doxycycline Hyclate 100 mg PO BID #14 capsule 08/04/18 Nebulizer [Truneb Nebulizer] 1 each MC QID PRN #1 each 08/04/18 Prednisone See Taper PO ASDIR #65 tablet 08/04/18 This patient is new to me today: No Emergency Visit: Yes ED Registration Date: 08/03/18 Care time: The patient presented to the Emergency Department on the above date and was hospitalized for further evaluation of their emergent condition. Critical Care patient: No - Discharge Referral Referred to [facility] No
--- NOTE | 2018-08-06 00:37 | EKG ---
Test Reason : Blood Pressure : / mmHG Vent. Rate : 105 BPM Atrial Rate : 108 BPM P-R Int : 184 ms QRS Dur : 134 ms QT Int : 380 ms P-R-T Axes : 000 195 038 degrees QTc Int : 502 ms SINUS TACHYCARDIA WITH PREMATURE SUPRAVENTRICULAR COMPLEXES RIGHT BUNDLE BRANCH BLOCK SEPTAL INFARCT , AGE UNDETERMINED ABNORMAL ECG WHEN COMPARED WITH ECG OF 06-MAR-2013 11:28, PREMATURE SUPRAVENTRICULAR COMPLEXES ARE NOW PRESENT SEPTAL INFARCT IS NOW PRESENT ST NOW DEPRESSED IN ANTERIOR LEADS Confirmed by MD Jesusita, Daniel ([id number]) on 08/06/2018 12:36:53 AM Referred By: Confirmed By:Daniel Mc MD
== END 2018-08-04 17:55 | disposition left against medical advice (07) | DRG 193 ==
LOC: JER 11:45 → JERBED 15:29 → J6S 17:44
PROVIDERS: ADMIT Hospitalist; ATTEND Hospitalist
DX: J18.1 Lobar pneumonia, unspecified organism (principal); J96.21 Acute and chronic respiratory failure with hypoxia; J96.22 Acute and chronic respiratory failure with hypercapnia; J44.1 Chronic obstructive pulmonary disease with (acute) exacerbation; E86.0 Dehydration; E78.5 Hyperlipidemia, unspecified; R42 Dizziness and giddiness; I25.10 Atherosclerotic heart disease of native coronary artery without angina pectoris; Z95.1 Presence of aortocoronary bypass graft; I95.1 Orthostatic hypotension; F17.210 Nicotine dependence, cigarettes, uncomplicated
CPT/HCPCS: 36415; 36600; 71045-TC-FY; 71250-TC; 80053; 82550; 82803; 83735; 83880; 84100; 84484; 85025; 87040; 87070; 87186; 87205; 93005; 93010; 94640; 99285-25; J7030

== ENCOUNTER 2018-08-06 10:15 | Inpatient (IN) | payer OTHER ==
[2018-08-06 10:24] VITALS: BMI 23.6
--- NOTE | 2018-08-06 10:48 | PDOC ---
Attending Attestation - Resident Resident Name: Tasia Wilkerson - ED Attending Attestation I have performed the following: I have examined & evaluated the patient, The case was reviewed & discussed with the resident, I agree w/resident's findings & plan, Exceptions are as noted - HPI HPI: 08/06/18 10:54 Mr. Castillo is an 83 yo M h/o COPD, HTN, HLD who returns to the ER due to Briefly, pt was seen in the ER recently and admitted to the hospitalist service for shortness of breath and lightheadedness CXR/CT reveals pneumonia Pt was initial treated with Vancomycin and Zosyn He was switched to Doxy, Augmentin, a prednisone taper as well as supplemental O2 He apparently left AMA He returns today due to shortness of breath Allergies: nkda Surgical History: Per patient, CABG, multiple biopsies Social history: Current everyday smoker, no reported use of alcohol or recreational drugs. The patient reports for the past 8 years hes been going to [facility] to visit her , 7 days a week for about 7 hours. PCP: Dr. Ortiz. Admission Discharge Rn: Dr. Huber. 08/06/18 10:56 08/06/18 10:58 - Physicial Exam PE: 08/06/18 10:53 GENERAL: +Cachectic Awake, alert and oriented. The patient is in no acute distress. ENT: Ears normal, nares patent, oropharynx clear without exudates. +dry mucous membranes. NECK: Normal range of motion, supple, no nuchal rigidity LUNGS: +faint breath sounds expiratory wheezing after the nebulizer use. clear to auscultation bilaterally. no crackles. HEART: soft heart sounds, Regular rate and rhythm, normal S1 and S2 without murmur, rub or gallop. ABDOMEN: Soft, nontender, normoactive bowel sounds. No guarding, no rebound. No masses palpable. EXTREMITIES: Normal range of motion, no edema. NEUROLOGICAL: Answering all questions. Cranial nerves II through XII grossly intact. Normal speech. No focal neurological deficits. SKIN: Warm, Dry, normal turgor, no rashes or lesions noted. - Medical Decision Making 08/06/18 10:53 is an 83 yo M who presents with a complaint of shortness of breath. He was admitted last week and ultimately left AMA for family reasons Pt returns because he is very short of breath No fevers that he is aware of DD: Pneumonia, COPD exacerbation 08/06/18 13:44 Laboratory Tests 08/06/18 08/06/18 08/06/18 11:26 11:26 11:26 WBC 10.1 H Hgb 13.9 Hct 41.6 Plt Count 205 D Sodium 140 Potassium 4.3 Chloride 108 H Carbon Dioxide 24 BUN 17.5 Creatinine 1.1 Random Glucose 103 Lactic Acid 3.5 H* Creatine Kinase 152 Creatine Kinase Index 4.2 CK-MB (CK-2) 6.4 H Troponin I < 0.02 B-Natriuretic Peptide 1567.9 H EKG- SR rate of 96 bpm, R axis deviation, RBBB, no st elevation or depressions, t waves upright case reviewed with Dr Boo Will admit to med surg Clinical impression: Pneumonia COPD exacerbation
--- NOTE | 2018-08-06 10:49 | PDOC ---
History of Present Illness - General Chief Complaint: Shortness of Breath Stated Complaint: COPD PNEUMONIA Time Seen by Provider: 08/06/18 10:47 History Source: Patient - History of Present Illness Initial Comments: 08/06/18 11:10 The patient is an 83 year old male with a PMH of CAD s/p CABG, COPD (on 2-3 L home O2), HLD, R pulmonary nodule, subcarinal mass who presents with worsening shortness of breath. As per EMR, patient evaluated in our ED on with worsening shortness of breath and lightheadedness. Was treated for HCAP (patient spends significant time in a residential), discharged AMA on 08/04 on 7 day course of Augmentin/Doxycylcine. Patient states he left AMA because he wanted to see his - he visits her daily @ [facility] for 5-6 hours. NKDA Surgical: CABG Social: Smokes 1/2 ppd, denies other toxic habits PMD: Dr. Ortiz Pulmonology: Dr. Huber Past History - Past Medical History Allergies/Adverse Reactions: Allergies Allergy/AdvReac Type Severity Reaction Status Date / Time No Known Drug Allergies Allergy Verified 08/06/18 10:24 Home Medications: Ambulatory Orders Albuterol Sulfate [Proair Hfa] 2 puff IH Q4H PRN 08/03/18 Aspirin [Aspirin EC] 81 mg PO DAILY 08/03/18 Budesonide/Formeterol Fumarate [SYMBICORT 160/4.5mcg -] 1 inh PO BID 08/03/18 Fluticasone Propionate [Flonase Allergy Relief] 9.9 ml NS TID PRN 08/03/18 Pravastatin Sodium 20 mg PO HS 08/03/18 Amoxicillin/Potassium Clav [Augmentin 875-125 Tablet] 1 each PO BID #14 tablet 08/04/18 Doxycycline Hyclate 100 mg PO BID #14 capsule 08/04/18 Prednisone See Taper PO ASDIR #65 tablet 08/04/18 Albuterol 2.5/Ipratropium 0.5 [Duoneb -] 1 neb IH QID PRN 90 Days #6 box Pantoprazole Sodium [Protonix -] 40 mg PO DAILY #30 tablet.ec 08/08/18 Anemia: No Asthma: No Cancer: No Cardiac Disorders: Yes (NM X 3; CAD) CVA: No COPD: Yes (no meds, continues to smoke) CHF: No Dementia: No Diabetes: No GI Disorders: No Disorders: No HTN: Yes Hypercholesterolemia: Yes Liver Disease: No Seizures: No Thyroid Disease: No - Surgical History Abdominal Surgery: No Appendectomy: No Cardiac Surgery: Yes (CABG; JUAN A CAROTID ENDARTERECTOMY) Cholecystectomy: No Lung Surgery: No Neurologic Surgery: No Orthopedic Surgery: No - Suicide/Smoking/Psychosocial Hx Smoking Status: No Smoking History: Current every day smoker Have you smoked in the past 12 months: Yes Number of Cigarettes Smoked Daily: 10 Cigars Per Day: 10 Information on smoking cessation initiated: No 'Breaking Loose' booklet given: 10/07/11 Hx Alcohol Use: No Drug/Substance Use Hx: No Substance Use Type: None Hx Substance Use Treatment: No Review of Systems - Review of Systems Constitutional: No: Chills, Fever HEENTM: No: Nose Pain Respiratory: Yes: Orthopnea, Shortness of Breath. No: Hemoptysis Cardiac (ROS): No: Chest Pain, Lightheadedness, Palpitations, Syncope ABD/GI: No: Constipated, Diarrhea, Nausea, Vomiting *Physical Exam - Vital Signs Last Vital Signs Temp Pulse Resp BP Pulse Ox 98.4 F 111 H 22 H 110/68 95 08/06/18 10:21 08/06/18 10:21 08/06/18 10:21 08/06/18 10:21 08/06/18 10:21 - Physical Exam General Appearance: Yes: Nourished, Appropriately Dressed, Cachetic HEENT: positive: Normal Voice, Hearing Grossly Normal Neck: positive: Trachea midline, Supple Respiratory/Chest: positive: Other (Expiratory wheezing s/p nebulizer; decreased breath sounds). negative: Crackles, Rhonchi Cardiovascular: positive: S1, S2 Gastrointestinal/Abdominal: positive: Normal Bowel Sounds, Soft ED Treatment Course - LABORATORY CBC & Chemistry Diagram: 08/08/18 06:15 08/08/18 06:15 Medical Decision Making - Medical Decision Making 08/06/18 12:28 83 year old male with a PMH of COPD (on 2-3 L home O2), recent admission for RLL PNA + COPD exacerbation, presents with worsening dyspnea. Tachycardic (HR 114) Tachypneic (RR 22) @ presentation Patient likely has a persistent PNA/COPD exacerbation; consider r/o ACS, PE but less likely given patient's clinical presentation. 08/06/18 12:35 BNP 1567 (previous BNP 718 on 08/04) - however patient has PHTN and RVH so less clinically indicative 08/06/18 13:13 Case d/w Dr. Boo, will admit for further evaluation and management including IV antibiotics, repeat KENDALL. Patient counseled on plan of care amenable to admission. Clinical Impression: COPD exacerbation *DC/Admit/Observation/Transfer Diagnosis at time of Disposition: COPD (chronic obstructive pulmonary disease) Qualifiers: COPD type: unspecified COPD Qualified Code(s): J44.9 - Chronic obstructive pulmonary disease, unspecified - Discharge Dispostion Condition at time of disposition: Fair Decision to Admit order: Yes - Referrals - Patient Instructions - Post Discharge Activity
[2018-08-06 11:39] LABS: BASO % 0.2 % (0-2.0); HEMATOCRIT 41.6 % (35.4-49); HEMOGLOBIN 13.9 GM/dL (11.7-16.9); LYMPH % 5.5 % (8-40); MCH 30.9 pg (25.7-33.7); MCHC 33.5 g/dl (32.0-35.9); MEAN CELL VOLUME 92.1 fl (80-96); MEAN PLT VOLUME 8.6 fl (7.5-11.1); NEUT % 88.3 % (42.8-82.8); PLATELET COUNT 205 K/MM3 (134-434); RBC 4.52 M/mm3 (4.00-5.60); RDW 15.2 % (11.9-15.9); WHITE BLOOD COUNT 10.1 K/mm3 (4.0-10.0)
[2018-08-06 11:49] LABS: INR 1.04 (0.83-1.09); PROTHROMBIN TIME (PATIENT) 12.3 SEC (9.7-13.0)
[2018-08-06 11:52] LABS: ACTIVATED PTT 36.3 SECONDS (25.2-36.5)
[2018-08-06 12:26] LABS: ALBUMIN 3.2 g/dl (3.4-5.0); ALK PHOS 97 U/L (45-117); ANION GAP 8 MMOL/L (8-16); BILIRUBIN,TOTAL 0.5 mg/dL (0.2-1); BLOOD UREA NITROGEN 17.5 mg/dL (7-18); CALCIUM 9.1 mg/dL (8.5-10.1); CHLORIDE 108 mmol/L (98-107); CO2 24 mmol/L (21-32); CREATININE 1.1 mg/dL (0.55-1.3); GLUCOSE,RANDOM 103 mg/dL (74-106); N-TERMINAL BNP 1567.9 pg/ml (5-450); POTASSIUM 4.3 mmol/L (3.5-5.1); SGOT/AST 40 U/L (15-37); SGPT/ALT 32 U/L (13-61); SODIUM 140 mmol/L (136-145); TOT PROT 6.9 g/dl (6.4-8.2)
[2018-08-06] MEDS ORDERED: SODIUM CHLORIDE 1,000 ML IV STA (12:55)
[2018-08-06] MEDS ORDERED: methylPREDNISolone NA SUCC 40 MG/1 ML VIAL IVPUSH ONE (13:10)
[2018-08-06] MEDS ORDERED: ALBUTEROL SO4 2.5/IPRATROPIUM 0.5 INH SOL 3 ML VIAL.NEB. NEB ONE ×3 (13:10→16:24)
[2018-08-06] MEDS ORDERED: methylPREDNISolone NA SUCC 40 MG/1 ML VIAL ONE (13:25)
[2018-08-06] MEDS ORDERED: ACETAMINOPHEN 325 MG TABLET (FP) PO PRN (13:40)
[2018-08-06] MEDS ORDERED: FLUTICASONE PROP 0.05% 16 GM NASAL SPRAY NS PRN (13:42)
[2018-08-06] MEDS ORDERED: ALBUTEROL SO4 8 GM HFA INHALER IH PRN (13:42)
[2018-08-06] MEDS: SODIUM CHLORIDE 1,000 ML IV STA ×2 (13:45→17:55)
--- NOTE | 2018-08-06 13:54 | HP ---
CHIEF COMPLAINT: shortness of breath PCP: Dr. Ortiz HISTORY OF PRESENT ILLNESS: 83 yom with PMHx of CAD s/p CABG/?MVR(per CT Chest read), COPD (emphysema/ Bronchiectasis) on prn home oxygen (not compliant), active heavy smoker, RVH/PAH /Mod TR, dizziness/orthostatic hypotension (off BP meds), HLD, RUL Pul nodule, Subcarinal mass s/p biopsy x2 (Benign), thyroid nodule, admitted to [facility] on with RLL PNA/COPD exac, left AMA on 08/04, when was given augmentin/ Doxycyline and prednisone taper, comes back today with persistent dyspnea, worse this AM. Has chronic cough with whitish sputum with no change. Also endorses poor oral intake since. Denies any new fevers, chills, chest pain, palpitations, orthopnea/PND, leg swelling, abdominal or urinary symptoms. reports compliance with antibiotics and prednisone since discharge. Spends almost 7 hours daily with his at [facility] with no reported sick contacts, recent antibiotics or travel. Recent Travel: Denies PAST MEDICAL HISTORY: CAD s/p CABG/?MVR(per CT Chest read), COPD (emphysema/ Bronchiectasis) on prn home oxygen (not compliant), active heavy smoker, RVH/PAH /Mod TR, dizziness/orthostatic hypotension (off BP meds), HLD, RUL Pul nodule, Subcarinal mass s/p biopsy x2 (Benign), thyroid nodule, PAST SURGICAL HISTORY: CABG/??MVR bilateral TEA with Dr. Fraser, Sinus surgeries Social History: Smoking: Heavy smoker for 71 years, 3-4 PPD earlier, now 1.5 PPD (reports does not use with oxygen) Alcohol: quit 50 years ago Drugs: Denies Retired, lives at home, independent in ADLs, uses cane. Visits his at 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 08/04/18 [Duoneb -] Amoxicillin/Potassium Clav 1 each PO BID #14 tablet 08/04/18 [Augmentin 875-125 Tablet] Doxycycline Hyclate 100 mg PO BID #14 capsule 08/04/18 Nebulizer [Truneb Nebulizer] 1 each MC QID PRN #1 each 08/04/18 Prednisone See Taper PO ASDIR #65 tablet 08/04/18 REVIEW OF SYSTEMS 12 point ROS done, per HPI PHYSICAL EXAMINATION Vital Signs - 24 hr 08/06/18 08/06/18 10:21 11:05 Temperature 98.4 F Pulse Rate 111 H Respiratory 22 H Rate Blood Pressure 110/68 O2 Sat by Pulse 95 94 L Oximetry (%) GENERAL: Awake, alert, and fully oriented,tachypneic, some use of accessory muscles of respiration, able to speak in full sentences HEAD: Normal with no signs of trauma. EYES: Pupils equal, round and reactive to light, extraocular movements intact, sclera anicteric, conjunctiva clear. No lid lag. EARS, NOSE, THROAT: Ears normal, nares patent, oropharynx clear without exudates. dry mucous membrane. NECK: Normal range of motion, supple, neck vein distension with pulsations LUNGS: decreased air entry all over, no wheezing, few right basilar rales HEART: S1S2 regular tachycardic ABDOMEN: Soft, nontender, not distended, normoactive bowel sounds, no guarding, no rebound, no masses. MUSCULOSKELETAL: Normal range of motion at all joints. No bony deformities or tenderness. No CVA tenderness. UPPER EXTREMITIES: 2+ pulses, warm, well-perfused. No cyanosis. No clubbing. No peripheral edema. LOWER EXTREMITIES: 2+ pulses, warm, well-perfused. No calf tenderness. No peripheral edema. NEUROLOGICAL: AAOx3, Cranial nerves II-XII intact. Normal speech. Gait not observed PSYCHIATRIC: Cooperative. Good eye contact. Appropriate mood and affect. SKIN: Warm, dry, decreased turgor, no rashes or lesions noted, normal capillary refill. Laboratory Results - last 24 hr 08/06/18 08/06/18 08/06/18 11:26 11:26 11:26 WBC 10.1 H RBC 4.52 Hgb 13.9 Hct 41.6 MCV 92.1 MCH 30.9 MCHC 33.5 RDW 15.2 Plt Count 205 D MPV 8.6 Absolute Neuts (auto) 8.9 H Neutrophils % 88.3 H Lymphocytes % 5.5 L D Monocytes % 6.0 D Eosinophils % 0.0 Basophils % 0.2 Nucleated RBC % 0 PT with INR 12.30 INR 1.04 PTT (Actin FS) 36.3 Sodium 140 Potassium 4.3 Chloride 108 H Carbon Dioxide 24 Anion Gap 8 BUN 17.5 Creatinine 1.1 Est GFR (CKD-EPI)AfAm 72.58 Est GFR (CKD-EPI)NonAf 62.62 Random Glucose 103 Lactic Acid Calcium 9.1 Total Bilirubin 0.5 AST 40 H ALT 32 Alkaline Phosphatase 97 Creatine Kinase 152 Creatine Kinase Index 4.2 CK-MB (CK-2) 6.4 H Troponin I < 0.02 B-Natriuretic Peptide 1567.9 H Total Protein 6.9 Albumin 3.2 L 08/06/18 11:26 WBC RBC Hgb Hct MCV MCH MCHC RDW Plt Count MPV Absolute Neuts (auto) Neutrophils % Lymphocytes % Monocytes % Eosinophils % Basophils % Nucleated RBC % PT with INR INR PTT (Actin FS) Sodium Potassium Chloride Carbon Dioxide Anion Gap BUN Creatinine Est GFR (CKD-EPI)AfAm Est GFR (CKD-EPI)NonAf Random Glucose Lactic Acid 3.5 H* Calcium Total Bilirubin AST ALT Alkaline Phosphatase Creatine Kinase Creatine Kinase Index CK-MB (CK-2) Troponin I B-Natriuretic Peptide Total Protein Albumin CXR images, persistent RLL Infiltrate, follow up official read EKG: NSR, RBBB, QTC 520 2D echo 09/2016 (from PCP's office): LV function size/function normal, EF 55-60%, RV systolic fuction atleast mild to moderately reduced, mild enlarged right atrium, moderate TR, atleast mild to mod Pul HTN, RV systolic pressure 51 mm hg ASSESSMENT/PLAN: 83 yom with PMHx of CAD s/p CABG/?MVR(per CT Chest read), COPD (emphysema/ Bronchiectasis) on prn home oxygen (not compliant), active heavy smoker, RVH/PAH /Mod TR, dizziness/orthostatic hypotension (off BP meds), HLD, RUL Pul nodule, Subcarinal mass s/p biopsy x2 (Benign), thyroid nodule, admitted to [facility] on with RLL PNA/COPD exac, left AMA on 08/04, when was given augmentin/ Doxycyline and prednisone taper, comes back today with persistent dyspnea -RLL PNA -Acute COPD exacerbation -Acute on chronic hypoxic +/- hypercarbic respiratory failure -Dizziness -Dehydration -Prolonged QTc -RVH/PAH/Mod TR -HLD -Right lung apex pulmonary nodule -CAD s/p CABG/?MVR (Per CT Chest read today) -Subcarinal mass s/p biopsy x 2 (Benign) -Thyroid nodule Plan: IV medrol, standing and prn nebs. Pulmonary input. WBC better, sputum cx with MSSA. Will place on Ceftriaxone/Doxycycline, ID input. BNP noted, patient with RVH, moderate TR and RVSP 51 on prior Echo, which makes BNP unreliable to address volume status. Clinically looks dry, try gentle hydration with close monitoring. Check 2D echo Continue ASA GIPPX protonix given high dose steroids and h/o hiatal hernia DVTPPX lovenox Dispo PT eval and social work input to address home oxygen machine concerns. Admit to inpatient medsurg. Plan discussed with patient, all questions answered. Care co-ordinated with ED Total admit time spent 65 min. Visit type - Emergency Visit Emergency Visit: Yes Care time: The patient presented to the Emergency Department on the above date and was hospitalized for further evaluation of their emergent condition. - New Patient This patient is new to me today: Yes Date on this admission: 08/06/18 - Critical Care Critical Care patient: No
[2018-08-06 14:07] LABS: MAGNESIUM 2.2 mg/dL (1.8-2.4)
--- NOTE | 2018-08-06 14:43 | PN ---
Progress Note (short form) - Note Progress Note: Full consultation done on Monday patient left AMA Monday evening returns today with weakness and sob he filled his meds doxy and augmentin smokes 1/2 ppd no fevers less cough actually reports chest discomfort is improved Vital Signs Period Temp Pulse Resp BP Sys/Max Pulse Ox Last 24 Hr 98.4 F 111 22 110/68 94-95 cor-rrr lungs decreased bs at ases abd soft,nt ext no edema CBC, BMP 08/06/18 11:26 08/06/18 11:26 cxray with RLL infiltrate Active Medications Acetaminophen (Tylenol -) 650 mg PO Q6H PRN PRN Reason: PAIN LEVEL 1-5 Albuterol Sulfate (Ventolin Hfa Inhaler -) 2 puff IH Q4H PRN PRN Reason: WHEEZING Albuterol/Ipratropium (Duoneb -) 1 amp NEB RQID RONALDO Last Admin: 08/06/18 16:22 Dose: 1 amp Aspirin (Ecotrin -) 81 mg PO DAILY RONALDO Atorvastatin Calcium (Lipitor -) 10 mg PO HS RONALDO Budesonide/Formoterol Fumarate (Symbicort 160/4.5mcg -) 1 puff IH BID RONALDO Doxycycline Hyclate (Vibramycin -) 100 mg PO BID@1000,1800 RONALDO Enoxaparin Sodium (Lovenox -) 40 mg SQ DAILY RONALDO Fluticasone Propionate (Flonase -) 2 spray NS TID PRN PRN Reason: ALLERGIES Sodium Chloride (Normal Saline -) 1,000 mls @ 75 mls/hr IV ASDIR STA Stop: 08/07/18 02:14 Last Admin: 08/06/18 13:45 Dose: 75 mls/hr Ceftriaxone Sodium 1 gm/ (Dextrose) 50 mls @ 200 mls/hr IVPB DAILY RONALDO; Protocol Last Admin: 08/06/18 16:22 Dose: 200 mls/hr Methylprednisolone Sodium Succinate (Solu-Medrol -) 40 mg IVPUSH Q8H-IV RONALDO Pantoprazole Sodium (Protonix -) 40 mg PO DAILY RONALDO a/p RLL pneumonia COPD exacerbation smoker continue rocephin/doxy legionella urinary antigen states he runs out of oxygen at home and cannot afford his inhalers d/w hospitalist
[2018-08-06 15:41] LABS: ARTERIAL BLD GAS O2 SATURATION 94.6 % (95-98); ARTERIAL BLOOD GAS BASE EXCESS 0.1 meq/l (-2-2); ARTERIAL BLOOD GAS PCO2 30.9 mmHg (35-45); ARTERIAL BLOOD GAS pH 7.47 (7.35-7.45)
[2018-08-06 15:48] LABS: ALLENS TEST POSITIVE
[2018-08-06] MEDS: ALBUTEROL SO4 2.5/IPRATROPIUM 0.5 INH SOL 3 ML VIAL.NEB. NEB SCH ×2 (16:22→19:40)
[2018-08-06] MEDS: CEFTRIAXONE 1 GM in DEXTROSE 5%-WATER - 50 ML IVPB SCH (16:22)
[2018-08-06] MEDS: DOXYCYCLINE HYCLATE 100 MG CAPSULE PO SCH (17:56)
[2018-08-06] MEDS: methylPREDNISolone NA SUCC 40 MG/1 ML VIAL IVPUSH SCH (17:58)
--- NOTE | 2018-08-06 18:16 | PN ---
Progress Note (short form) - Note Progress Note: PULMONARY CONSULTATION DICTATED 08/06/18 IMP RLL PNEUMONIA COPD EXACERBATION ASHD S/P CABG ELEVATED LACTATE LEVEL H/O SUBCARINAL MASS BX X2 BENIGN TOBACCO ABUSE PLAN IV ABX INHALED BRONCHODILATORS CULTURES SUPPLEMENTAL O2 TREND LACTATE SMOKING CESSATION COUNSELED DR RIOJAS Problem List - Problems (1) ASHD (arteriosclerotic heart disease) Code(s): I25.10 - ATHSCL HEART DISEASE OF [place] CORONARY ARTERY W/O ANG PCTRS (2) COPD (chronic obstructive pulmonary disease) Code(s): J44.9 - CHRONIC OBSTRUCTIVE PULMONARY DISEASE, UNSPECIFIED Qualifiers: COPD type: unspecified COPD Qualified Code(s): J44.9 - Chronic obstructive pulmonary disease, unspecified (3) Pneumonia Code(s): J18.9 - PNEUMONIA, UNSPECIFIED ORGANISM Qualifiers: Pneumonia type: due to unspecified organism Laterality: unspecified laterality Lung location: unspecified part of lung Qualified Code(s): J18.9 - Pneumonia, unspecified organism (4) S/P CABG x 3 Code(s): Z95.1 - PRESENCE OF AORTOCORONARY BYPASS GRAFT (5) COPD exacerbation Code(s): J44.1 - CHRONIC OBSTRUCTIVE PULMONARY DISEASE W (ACUTE) EXACERBATION (6) Lactate blood increased Code(s): R79.89 - OTHER SPECIFIED ABNORMAL FINDINGS OF BLOOD CHEMISTRY
--- NOTE | 2018-08-06 19:25 | CONS ---
PULMONARY CONSULTATION DATE OF CONSULTATION: 08/06/2018 REFERRING PHYSICIAN: Leandro Boo MD The patient is an 83-year-old white male known to me in previous hospitalization with past medical history of advanced COPD on home O2, noncompliant; ASHD status post CABG; history of pulmonary hypertension; longstanding history of tobacco use, currently still smoking; orthostatic hypotension; history of right upper lobe nodule, biopsy negative; subcarinal mass status post biopsy x2, negative; thyroid nodule; admitted to [facility] with increasing shortness of breath, cough. Patient was recently hospitalized on August 03 secondary to right lower lobe pneumonia and COPD exacerbation. He signed out AMA on August 04 and was treated with Augmentin and doxycycline and prednisone taper. Despite these measures, he had increasing symptoms; at which time, presented back to the emergency room. He denies any nausea, vomiting, diaphoresis. Denies any fevers or chills or hemoptysis at this time. On admission, he was started on antibiotic therapy and supplemental O2 and steroids with some improvement. PAST MEDICAL HISTORY: Again includes advanced COPD, O2 dependent, noncompliant with O2; ASHD status post CABG; history of subcarinal mass status post biopsy x2, benign; history of right upper lobe nodule; hypertension; hyperlipidemia; orthostatic hypotension. SOCIAL HISTORY: No occupational exposures. Positive smoker, currently still smoking 1-1/2 packs a day, previously smoked 3-4 packs a day. CURRENT MEDICATIONS: Include Symbicort, Solu-Medrol, Tylenol, ceftriaxone, vibramycin, Lovenox, albuterol, DuoNeb, Flonase, normal saline, Lipitor, Ecotrin, and Protonix. REVIEW OF SYSTEMS: Positive dyspnea. Positive cough. No chest pain. No palpitations. No abdominal pain. No lower extremity edema. PHYSICAL EXAMINATION: General: The patient is a well-developed, well-nourished white male, awake, alert, in no acute distress. Vital Signs: He is afebrile. Blood pressure is 143/75. Respiratory rate is 20. O2 saturation is 94%. HEENT: Normocephalic, atraumatic. Neck: Supple. Heart: Regular. S1, S2. Chest: A few crackles at the bases and scattered wheezes. Abdomen: Soft. Bowel sounds are positive. Extremities: No cyanosis or edema. LABORATORY DATA: WBC is 10.1, hemoglobin 13.9, hematocrit 41.6, with a platelet count of 205,000. Blood gas showed pH of 7.47, pCO2 of 30, a pO2 of 71, a bicarbonate of 22, and saturation of 94.6. BUN 17, creatinine 1.1. Lactate level of 3.5. BNP is 1567. IMPRESSION: 1. Dyspnea secondary to chronic obstructive pulmonary disease exacerbation. 2. Right lower lobe pneumonia. 3. Atherosclerotic heart disease status post coronary artery bypass graft. 4. Elevated lactate level. 5. History of subcarinal mass status post biopsy x2, negative/benign. 6. Tobacco abuse. PLAN: IV antibiotics, inhaled bronchodilators, supplemental O2. Obtain cultures. Trend lactate. Smoking cessation counseled. YOVANNY RIOJAS M.D. [id number]
[2018-08-06] MEDS: BUDESONIDE/FORMETEROL FUMARATE 160/4.5 mcg INHALER IH SCH (21:01)
[2018-08-06] MEDS: ATORVASTATIN CA 10 MG TABLET (FP) PO SCH (21:01)
[2018-08-07] MEDS: methylPREDNISolone NA SUCC 40 MG/1 ML VIAL IVPUSH SCH ×3 (02:04→17:28)
[2018-08-07 08:40] LABS: BASO % 0.1 % (0-2.0); HEMATOCRIT 42.3 % (35.4-49); HEMOGLOBIN 14.1 GM/dL (11.7-16.9); MCH 30.9 pg (25.7-33.7); MCHC 33.4 g/dl (32.0-35.9); MEAN CELL VOLUME 92.7 fl (80-96); MEAN PLT VOLUME 8.5 fl (7.5-11.1); MONO % 3.7 % (3.8-10.2); NEUT % 90.2 % (42.8-82.8); PLATELET COUNT 221 K/MM3 (134-434); RBC 4.56 M/mm3 (4.00-5.60); RDW 15.3 % (11.9-15.9); WHITE BLOOD COUNT 8.5 K/mm3 (4.0-10.0)
[2018-08-07] MEDS: ALBUTEROL SO4 2.5/IPRATROPIUM 0.5 INH SOL 3 ML VIAL.NEB. NEB SCH ×3 (09:00→16:46)
[2018-08-07 09:04] LABS: BLOOD UREA NITROGEN 14.1 mg/dL (7-18); CALCIUM 9.2 mg/dL (8.5-10.1); CREATININE 0.8 mg/dL (0.55-1.3); MAGNESIUM 2.3 mg/dL (1.8-2.4); PHOSPHOROUS 3.1 mg/dL (2.5-4.9)
[2018-08-07] MEDS ORDERED: cefTRIAXone SODIUM 1 GM VIAL ONE (09:13)
[2018-08-07] MEDS ORDERED: DEXTROSE 5%-WATER - 50 ML IVPB ONE (09:13)
[2018-08-07] MEDS ORDERED: SODIUM CHLORIDE 500 ML IV STA (09:20)
[2018-08-07] MEDS: CEFTRIAXONE 1 GM in DEXTROSE 5%-WATER - 50 ML IVPB SCH (09:42)
[2018-08-07] MEDS: ASPIRIN COATED 81 MG TABLET.EC PO SCH (09:43)
[2018-08-07] MEDS: ENOXAPARIN NA (PORCINE) 40 MG/0.4 ML DISP.SYRIN SQ SCH (09:43)
[2018-08-07] MEDS: PANTOPRAZOLE 40 MG TABLET (FP) PO SCH (09:43)
[2018-08-07] MEDS: DOXYCYCLINE HYCLATE 100 MG CAPSULE PO SCH ×2 (09:43→17:28)
[2018-08-07] MEDS: BUDESONIDE/FORMETEROL FUMARATE 160/4.5 mcg INHALER IH SCH ×2 (10:08→21:44)
--- NOTE | 2018-08-07 10:14 | PN ---
Progress Note (short form) - Note Progress Note: PULMONARY States breathing slightly improved. Minimal cough. No fevers or chills. Vital Signs Period Temp Pulse Resp BP Sys/Max Pulse Ox Last 24 Hr 97.6 F-98.4 F 60-111 20-22 110-143/68-86 94-96 Gen: NAD at rest Heart: RRR Lung: distant breath sounds, no wheezes Abd: soft, nontender Ext: no edema CBC, BMP 08/07/18 07:58 08/07/18 07:58 Active Medications Acetaminophen (Tylenol -) 650 mg PO Q6H PRN PRN Reason: PAIN LEVEL 1-5 Albuterol Sulfate (Ventolin Hfa Inhaler -) 2 puff IH Q4H PRN PRN Reason: WHEEZING Albuterol/Ipratropium (Duoneb -) 1 amp NEB RQID [facility] Last Admin: 08/07/18 09:00 Dose: 1 amp Aspirin (Ecotrin -) 81 mg PO DAILY RONALDO Last Admin: 08/07/18 09:43 Dose: 81 mg Atorvastatin Calcium (Lipitor -) 10 mg PO HS [facility] Last Admin: 08/06/18 21:01 Dose: 10 mg Budesonide/Formoterol Fumarate (Symbicort 160/4.5mcg -) 1 puff IH BID [facility] Last Admin: 08/07/18 10:08 Dose: 1 puff Doxycycline Hyclate (Vibramycin -) 100 mg PO BID@1000,1800 RONALDO Last Admin: 08/07/18 09:43 Dose: 100 mg Enoxaparin Sodium (Lovenox -) 40 mg SQ DAILY [facility] Last Admin: 08/07/18 09:43 Dose: 40 mg Fluticasone Propionate (Flonase -) 2 spray NS TID PRN PRN Reason: ALLERGIES Ceftriaxone Sodium 1 gm/ (Dextrose) 50 mls @ 200 mls/hr IVPB DAILY RONALDO; Protocol Last Admin: 08/07/18 09:42 Dose: 200 mls/hr Sodium Chloride (Normal Saline -) 500 mls @ 500 mls/hr IV ASDIR STA Stop: 08/07/18 10:19 Last Admin: 08/07/18 09:44 Dose: 500 mls/hr Methylprednisolone Sodium Succinate (Solu-Medrol -) 40 mg IVPUSH Q8H-IV RONALDO Last Admin: 08/07/18 10:07 Dose: 40 mg Pantoprazole Sodium (Protonix -) 40 mg PO DAILY RONALDO Last Admin: 08/07/18 09:43 Dose: 40 mg A/P RLL Pneumonia Acute COPD Exacerbation Lactic Acidosis CAD s/p CABG Smoker - continue antibiotics - continue medrol at current dose - inhaled bronchodilators - O2 to keep SpO2 >90% - PT eval, states he is unsteady while walking - DVT prophylaxis - smoking cessation
--- NOTE | 2018-08-07 10:45 | ECHO ---
Name: SMITA VAN Exam:Adult Echocardiogram Study Date: 08/07/2018 08:14 AM Age: 83 yrs Reason For Study: RV DYSFUNCTION Height: 66 in Weight: 146 lb BSA: 1.7 m2 MMode/2D Measurements & Calculations IVSd: 1.0 cm Ao root diam: 3.4 cm LVIDd: 4.7 cm LA dimension: 3.2 cm LVIDs: 3.2 cm LVPWd: 0.92 cm EDV(Teich): 103.7 ml LVOT diam: 2.0 cm ESV(Teich): 40.4 ml Doppler Measurements & Calculations MV E max bereket: 67.9 cm/sec Ao V2 max: 143.9 cm/sec MV A max bereket: 74.2 cm/sec Ao max P.3 mmHg MV E/A: 0.91 MV dec time: 0.18 sec LUIS(V,D): 1.6 cm2 LV V1 max P.2 mmHg MR max bereket: 453.6 cm/sec LV V1 max: 74.7 cm/sec MR max P.3 mmHg TR max bereket: 412.3 cm/sec PA V2 max: 84.2 cm/sec TR max P.1 mmHg PA max P.8 mmHg Med Peak E' Bereket: 7.4 cm/sec Med E/e': 9.2 Lat Peak E' Bereket: 8.3 cm/sec Lat E/e': 8.2 Procedure A two-dimensional transthoracic echocardiogram with color flow and Doppler was performed. The study w as technically difficult with many images being suboptimal in quality. The patient had a bundle branch b lock rhythm during the exam. Left Ventricle The left ventricle is normal in size. Left ventricular systolic function is normal. Ejection Fraction = 60%. Septal motion is consistent with conduction abnormality. Flattened septum is consistent with RV press ure overload. Right Ventricle The right ventricle is mildly dilated. The right ventricle is not well visualized. The right ventricu lar systolic function is mildly reduced. Atria Normal left and right atrial size and function. Mitral Valve There is moderate mitral annular calcification. There is moderate mitral valve thickening. There is m ild mitral regurgitation. Tricuspid Valve The tricuspid valve is normal. There is mild tricuspid regurgitation. There is severe pulmonary hyper tension. Right ventricular systolic pressure is 85 mmhg. Aortic Valve There is moderate to severe aortic sclerosis.;. Hemodynamically significant valvular aortic stenosis cannot be excluded. Incomplete doppler envelopes to accurately assess for degree of aortic stenosis. Suggest dedicated imaging if clinically indicated. Pulmonic Valve The pulmonic valve is not well visualized. There is no pulmonic valvular regurgitation. Great Vessels The aortic root is normal size. Pericardium/Pleura There is no pericardial effusion. Interpretation Summary The study was technically difficult with many images being suboptimal in quality. Left ventricular systolic function is normal. Septal motion is consistent with conduction abnormality. Flattened septum is consistent with RV pressure overload. The right ventricle is not well visualized. The right ventricle is mildly dilated. The right ventricular systolic function is mildly reduced. There is moderate mitral annular calcification. There is moderate mitral valve thickening. There is mild mitral regurgitation. There is mild tricuspid regurgitation. There is severe pulmonary hypertension. Right ventricular systolic pressure is 85 mmhg. There is moderate to severe aortic sclerosis.; Hemodynamically significant valvular aortic stenosis cannot be excluded. Incomplete doppler envelopes to accurately assess for degree of aortic stenosis. Suggest dedicated imaging if clinically indicated. MD Klever Mcintosh 08/07/2018 10:44 AM
--- NOTE | 2018-08-07 11:45 | PN ---
Physical Exam: SUBJECTIVE: Patient seen and examined, still with dyspnea, denies any fevers, chills, worsening cough/sputum or new complaints. OBJECTIVE: Vital Signs Period Temp Pulse Resp BP Sys/Max Pulse Ox Last 24 Hr 97.4 F-98.4 F 60-94 20-20 121-143/68-86 96-96 Intake & Output 08/04/18 08/05/18 08/06/18 08/07/18 23:59 23:59 23:59 23:59 Intake Total 1175 400 Balance 1175 400 Weight 146 lb 9 oz 148 lb 9.6 oz GENERAL: sitting in bed, tachypneic, some use of accessory muscles but able to speak in full sentences Neck: distended neck veins CVS:S1s2 regular Chest: poor air entry all over, no wheezing or rales appreciated. Abdomen:soft, NT, ND, pos bowel sounds Extremities: no edema Laboratory Results - last 24 hr 08/06/18 08/06/18 08/06/18 11:26 11:26 11:26 WBC RBC Hgb Hct MCV MCH MCHC RDW Plt Count MPV Absolute Neuts (auto) Neutrophils % Lymphocytes % Monocytes % Eosinophils % Basophils % Nucleated RBC % PT with INR 12.30 INR 1.04 PTT (Actin FS) 36.3 Anticoagulation Therapy Puncture Site ABG pH ABG pCO2 at Pt Temp ABG pO2 at Pt Temp ABG HCO3 ABG O2 Sat (Measured) ABG O2 Content ABG Base Excess Flip Test O2 Delivery Device Oxygen Flow Rate Vent Mode Vent Rate Mechanical Rate Pressure Support Vent Sodium 140 Potassium 4.3 Chloride 108 H Carbon Dioxide 24 Anion Gap 8 BUN 17.5 Creatinine 1.1 Est GFR (CKD-EPI)AfAm 72.58 Est GFR (CKD-EPI)NonAf 62.62 POC Glucometer Random Glucose 103 Lactic Acid 3.5 H* Calcium 9.1 Phosphorus Magnesium 2.2 Total Bilirubin 0.5 AST 40 H ALT 32 Alkaline Phosphatase 97 Creatine Kinase 152 Creatine Kinase Index 4.2 CK-MB (CK-2) 6.4 H Troponin I < 0.02 B-Natriuretic Peptide 1567.9 H Total Protein 6.9 Albumin 3.2 L 08/06/18 08/06/18 08/06/18 15:00 15:24 17:47 WBC RBC Hgb Hct MCV MCH MCHC RDW Plt Count MPV Absolute Neuts (auto) Neutrophils % Lymphocytes % Monocytes % Eosinophils % Basophils % Nucleated RBC % PT with INR INR PTT (Actin FS) Anticoagulation Therapy No Result Required. Puncture Site Left radial ABG pH 7.47 H ABG pCO2 at Pt Temp 30.9 L ABG pO2 at Pt Temp 71.0 L ABG HCO3 22.3 ABG O2 Sat (Measured) 94.6 L ABG O2 Content 19.9 ABG Base Excess 0.1 Flip Test Positive O2 Delivery Device No Result Required. Oxygen Flow Rate No Vent Mode No Result Required. Vent Rate No Result Required. Mechanical Rate No Result Required. Pressure Support Vent No Result Required. Sodium Potassium Chloride Carbon Dioxide Anion Gap BUN Creatinine Est GFR (CKD-EPI)AfAm Est GFR (CKD-EPI)NonAf POC Glucometer 133 Random Glucose Lactic Acid 1.3 Calcium Phosphorus Magnesium Total Bilirubin AST ALT Alkaline Phosphatase Creatine Kinase Creatine Kinase Index CK-MB (CK-2) Troponin I B-Natriuretic Peptide Total Protein Albumin 08/07/18 08/07/18 08/07/18 07:58 07:58 07:58 WBC 8.5 RBC 4.56 Hgb 14.1 Hct 42.3 MCV 92.7 MCH 30.9 MCHC 33.4 RDW 15.3 Plt Count 221 MPV 8.5 Absolute Neuts (auto) 7.7 Neutrophils % 90.2 H Lymphocytes % 6.0 L Monocytes % 3.7 L Eosinophils % 0.0 Basophils % 0.1 Nucleated RBC % 0 PT with INR INR PTT (Actin FS) Anticoagulation Therapy Puncture Site ABG pH ABG pCO2 at Pt Temp ABG pO2 at Pt Temp ABG HCO3 ABG O2 Sat (Measured) ABG O2 Content ABG Base Excess Flip Test O2 Delivery Device Oxygen Flow Rate Vent Mode Vent Rate Mechanical Rate Pressure Support Vent Sodium 138 Potassium 4.0 Chloride 105 Carbon Dioxide 26 Anion Gap 7 L BUN 14.1 Creatinine 0.8 Est GFR (CKD-EPI)AfAm 97.10 Est GFR (CKD-EPI)NonAf 83.78 POC Glucometer Random Glucose 95 Lactic Acid 3.1 H* Calcium 9.2 Phosphorus 3.1 Magnesium 2.3 Total Bilirubin AST ALT Alkaline Phosphatase Creatine Kinase Creatine Kinase Index CK-MB (CK-2) Troponin I B-Natriuretic Peptide Total Protein Albumin Active Medications Generic Name Dose Route Start Last Admin Trade Name Freq PRN Reason Stop Dose Admin Acetaminophen 650 mg 08/06/18 13:40 Tylenol - PO Q6H PRN PAIN LEVEL 1-5 Albuterol Sulfate 2 puff 08/06/18 13:42 Ventolin Hfa Inhaler - IH Q4H PRN WHEEZING Albuterol/Ipratropium 1 amp 08/06/18 16:00 08/07/18 11:28 Duoneb - NEB 1 amp RQID RONALDO Administration Aspirin 81 mg 08/07/18 10:00 08/07/18 09:43 Ecotrin - PO 81 mg DAILY RONALDO Administration Atorvastatin Calcium 10 mg 08/06/18 22:00 08/06/18 21:01 Lipitor - PO 10 mg HS RONALDO Administration Budesonide/Formoterol Fumarate 1 puff 08/06/18 22:00 08/07/18 10:08 Symbicort 160/4.5mcg - IH 1 puff BID RONALDO Administration Doxycycline Hyclate 100 mg 08/06/18 18:00 08/07/18 09:43 Vibramycin - PO 100 mg BID@1000,1800 RONALDO Administration Enoxaparin Sodium 40 mg 08/07/18 10:00 08/07/18 09:43 Lovenox - SQ 40 mg DAILY RONALDO Administration Fluticasone Propionate 2 spray 08/06/18 13:42 Flonase - NS TID PRN ALLERGIES Ceftriaxone Sodium 1 gm/ 50 mls @ 200 mls/hr 08/06/18 14:15 08/07/18 09:42 Dextrose IVPB 200 mls/hr DAILY RONALDO Administration Protocol Methylprednisolone Sodium Succinate 40 mg 08/06/18 18:00 08/07/18 10:07 Solu-Medrol - IVPUSH 40 mg Q8H-IV RONALDO Administration Pantoprazole Sodium 40 mg 08/07/18 10:00 08/07/18 09:43 Protonix - PO 40 mg DAILY RONALDO Administration Microbiology 08/06/18 18:45 Urine For Antigen Detection Legionella Antigen - Final 08/06/18 18:45 Urine For Antigen Detection Streptococcus pneumoniae Antigen (M - Final ASSESSMENT/PLAN: 83 yom with PMHx of CAD s/p CABG/?MVR(per CT Chest read), COPD (emphysema/ Bronchiectasis) on prn home oxygen (not compliant), active heavy smoker, RVH/PAH /Mod TR, dizziness/orthostatic hypotension (off BP meds), HLD, RUL Pul nodule, Subcarinal mass s/p biopsy x2 (Benign), thyroid nodule, admitted to [facility] on with RLL PNA/COPD exac, left AMA on 08/04, when was given augmentin/ Doxycyline and prednisone taper, admtited with persistent dyspnae. -RLL PNA -Acute COPD exacerbation -Acute on chronic hypoxic +/- hypercarbic respiratory failure -Severe pulmonary HTN/RVH (RVSP 85 mm Hg) -Moderate to severe aortic stenosis -Lactic acidosis, suspect from respiratory distress/overall poor perfusion from valvular abnormality rather than sepsis -Dizziness -Dehydration -Prolonged QTc -HLD -Right lung apex pulmonary nodule -CAD s/p CABG/?MVR (Per CT Chest read today) -Subcarinal mass s/p biopsy x 2 (Benign) -Thyroid nodule Plan: Poor entry, continue current dose of medrol. Standing and prn nebs, Pulmonary input noted. Moderate to severe , cardiology input Gentle IVF bolus, repeat lactate. Caution with hydration given above. Afebrile, WBC stable. Recent Sputum Cx with MSSA. Spends almost 7-8 hours at [facility] with daily, Initially was on zosyn/ doxycyline. Clinically improved. Ceftriaxone/doxycycline for now. ID input noted. Continue ASA GIPPX protonix given high dose steroids and h/o hiatal hernia DVTPPX lovenox Dispo PT eval and social work input to address home oxygen machine concerns. Plan discussed with patient and nursing, all questions answered. Visit type - Emergency Visit Emergency Visit: Yes ED Registration Date: 08/06/18 Care time: The patient presented to the Emergency Department on the above date and was hospitalized for further evaluation of their emergent condition. - New Patient This patient is new to me today: No - Critical Care Critical Care patient: No - Discharge Referral Referred to [facility] Med P.C.: No
--- NOTE | 2018-08-07 13:11 | CON.CARD ---
Consult Consult Specialty:: Cardiology Referred by:: Dr. Boo Reason for Consultation:: Abnl Echo - History of Present Illness Chief Complaint: Cough, fever, SOB History of Present Illness: 83M w/ CAD s/p remote CABG, HTN, PHTN (w/ secondary w/u indicative of COPD as etiology), chronic RV dysfx on that basis, b/l carotid endarterectomies, PAD, admitted by PMD for increased SOB, cough, fever found to have suspected PNA. Seen by Pulmonary and treated w/ IV abx w clinical improvement. We are called to see him today for abnl echo read as aortic valve sclerosis with unable to be ruled out. ROS: Episode chills last week w/ productive cough. No exertional CP. + Chronic CHICAS due to COPD unchanged. No palps No PND/orthopnea/edema. Still smokes 1 pack every 2 -3 days. On home 02. - History Source History Provided By: Patient, Medical Record - Past Medical History Cardio/Vascular: Yes: CAD, Hyperlipdemia, Pulmonary Hypertension Pulmonary: Yes: COPD, O2 Dependent Hepatobiliary: No: Cirrhosis, Cholelithiasis, Cholecystitis, Choledocholithiasis , Hepatitis A, Hepatitis B, Hepatitis C, Other Renal/: No: Renal Failure, Renal Inusuff, BPH, Cancer, Hematuria, Hemodialysis , Neurogenic Bladder, Renal Calculi, UTI, Other Heme/Onc: No: Anemia, B12 Deficiency, Bleeding Disorder, Cancer, Current Chemotherapy, Current Radiation Therapy, Hemochromatosis, Hypercoaguable State, Myeloproliferative Synd, Sickle Cell Disease, Sickle Cell Trait, Thrombocytopenia, Other Infectious Disease: No: AIDS, C-Diff, Herpes Zoster, HIV, MRSA, STD's, Tuberculosis, VREF, Other Psych: No: Addictions, Anxiety, Bipolar, Depression, Panic, Psychosis, Schizophrenia, Other Musculoskeletal: No: Bursitis, Chronic low back pain, Hemiparesis, Hemiplegia, Osteoarthritis, Paraplegia, Other Rheumatology: No: Fibromyalgia, Gout, Lupus, Rheumatoid Arthritis, Sarcoidosis, Vasculitis, Other ENT: No: Allergic Rhinitis, Sinusitis, Other Endocrine: No: [place]'s Disease, Bonneau's Disease, Diabetes Insipidus, Diabetes Mellitus, Hyperparathyroidism, Hyperthyroidism, Hypothyroidism, Osteopenia, SIADH, Other Additional Medical History: subcarinal mass s/p biopsy (2) - Past Surgical History Past Surgical History: Yes: CABG (time 3), Carotid Endarterectomy (bilateral) - Alcohol/Substance Use Hx Alcohol Use: No - Smoking History Smoking history: Current every day smoker Have you smoked in the past 12 months: Yes Aproximately how many cigarettes per day: 10 - Social History Usual Living Arrangement: Alone ADL: Independent Occupation: retired aviation electrician History of Recent Travel: No Home Medications - Allergies Allergies/Adverse Reactions: Allergies Allergy/AdvReac Type Severity Reaction Status Date / Time No Known Drug Allergies Allergy Verified 08/06/18 10:24 - Home Medications Home Medications: Ambulatory Orders Albuterol Sulfate [Proair Hfa] 2 puff IH Q4H PRN 08/03/18 Aspirin [Aspirin EC] 81 mg PO DAILY 08/03/18 Budesonide/Formeterol Fumarate [SYMBICORT 160/4.5mcg -] 1 inh PO BID 08/03/18 Fluticasone Propionate [Flonase Allergy Relief] 9.9 ml NS TID PRN 08/03/18 Pravastatin Sodium 20 mg PO HS 08/03/18 Albuterol 2.5/Ipratropium 0.5 [Duoneb -] 1 neb IH QID PRN #1 vial.neb. 08/04/18 Amoxicillin/Potassium Clav [Augmentin 875-125 Tablet] 1 each PO BID #14 tablet 08/04/18 Doxycycline Hyclate 100 mg PO BID #14 capsule 08/04/18 Nebulizer [Truneb Nebulizer] 1 each MC QID PRN #1 each 08/04/18 Prednisone See Taper PO ASDIR #65 tablet 08/04/18 Family Disease History - Family Disease History Family Disease History: Other: Son (- unknown cause by autopsy) Review of Systems - Review of Systems Constitutional: reports: Fever Eyes: reports: No Symptoms HENT: reports: No Symptoms Neck: reports: No Symptoms Cardiovascular: reports: Shortness of Breath Respiratory: reports: Cough, SOB on Exertion Gastrointestinal: reports: No Symptoms Genitourinary: reports: No Symptoms Breasts: reports: No Symptoms Reported Musculoskeletal: reports: No Symptoms Integumentary: reports: No Symptoms Neurological: reports: No Symptoms Endocrine: reports: No Symptoms Hematology/Lymphatic: reports: No Symptoms Psychiatric: reports: No Symptoms - Risk Factors Known Risk Factors: Yes: Hypercholesterolemia, Smoking, Other (Known CAD s/p CABG) Vital Signs: Vital Signs Temperature 97.4 F L 08/07/18 10:00 Pulse Rate 94 H 08/07/18 10:00 Respiratory Rate 20 08/07/18 10:00 Blood Pressure 123/77 08/07/18 10:00 O2 Sat by Pulse Oximetry (%) 96 08/07/18 09:00 Constitutional: Yes: No Distress, Calm Eyes: Yes: Conjunctiva Clear, EOM Intact HENT: Yes: Normocephalic Neck: Yes: Trachea Midline Respiratory: Yes: Other (decreased breath sounds b/l c/w COPD, no active wheezing or rales) Gastrointestinal: Yes: Soft (NT) Cardiovascular: Yes: Regular Rate and Rhythm JVD: No Carotid Bruit: No Murmur: Yes: Grade 1 (EMILIANO RSB with preserved S2) Edema: No Peripheral Pulses WNL: Yes Neurological: Yes: Alert, Oriented ...Motor Strength: WNL Psychiatric: Yes: WNL - Other Data Labs, Other Data: CBC, BMP 08/07/18 07:58 08/07/18 07:58 INR, PTT INR 1.04 (0.83-1.09) 08/06/18 11:26 Troponin, BNP 08/06/18 11:26 Troponin I < 0.02 B-Natriuretic Peptide 1567.9 H Troponin, BNP 08/06/18 11:26 Troponin I < 0.02 B-Natriuretic Peptide 1567.9 H Laboratory Tests 08/06/18 08/07/18 08/07/18 15:24 07:58 07:58 WBC 8.5 Hgb 14.1 Plt Count 221 ABG pH 7.47 H ABG pCO2 at Pt Temp 30.9 L ABG pO2 at Pt Temp 71.0 L Sodium 138 Potassium 4.0 BUN 14.1 Creatinine 0.8 Magnesium 2.3 NSR 96bpm, APCs, RBBB Stress Echo: Report Reviewed Prior Cardiac Procedures: CABG Ejection Fraction %: LVEF > or = 40 % Imaging - Results Chest X-ray: Image Reviewed EKG: Image Reviewed Assessment/Plan IMP: 1. PNA 2. 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 CAD w/ remote h/o CABG 4. Carotid atherosclerosis s/p b/l CEAs 5. PAD, asx 6. Active smoker 7. Aortic valve sclerosis REC: 1. Continued Rx of PNA as per PMD and Pulm w/ Abx, supplimental O2 and Nebs. Steroid taper. 2. DVT prophylaxis. 3. Continued low dose ASA and statin for his h/o CAD and Carotid disease with routine outpatient surveillance Vascular ([facility]). 4. Currently no ischemic sx with last stress 01/2015, no ischemia. 5. There is likely PAD, with prior abnl outpatient ABIs, asx. Smoking cessation / ASA/Statin therapy. 6. Aortic sclerosis noted, with physical exam revealing preserved crisp S2. Doubt significant . Study can be repeated as outpatient with special attention to aortic valve gradients. 7. Outpatient f/u w/ Dr. Hernández 1-2 weeks after discharge. PHTN and RV dysfx is chronic- prior secondary w/u including V/Q scan done with results indicating COPD as primary cause of PHTN. Smoking cessation/home O2 recommended. Thank you.
[2018-08-07] MEDS ORDERED: SODIUM CHLORIDE 1,000 ML IV SCH (14:30)
--- NOTE | 2018-08-07 14:56 | EKG ---
Test Reason : Blood Pressure : / mmHG Vent. Rate : 096 BPM Atrial Rate : 083 BPM P-R Int : 000 ms QRS Dur : 140 ms QT Int : 412 ms P-R-T Axes : 000 190 041 degrees QTc Int : 520 ms Possible sinus rhythm with frequent premature atrial complexes. RIGHT BUNDLE BRANCH BLOCK SEPTAL INFARCT (CITED ON OR BEFORE 03-AUG-2018) ABNORMAL ECG WHEN COMPARED WITH ECG OF 03-AUG-2018 11:48, QUESTIONABLE CHANGE IN INITIAL FORCES OF SEPTAL LEADS Confirmed by MD BRIDGETTE, MAYKEL ([id number]) on 08/07/2018 2:56:25 PM Referred By: Confirmed By:MAYKEL ANGELES MD
[2018-08-07 17:01] LABS: ARTERIAL BLD GAS O2 SATURATION 96.8 % (95-98); ARTERIAL BLOOD GAS BASE EXCESS 0.4 meq/l (-2-2); ARTERIAL BLOOD GAS PCO2 29.1 mmHg (35-45); ARTERIAL BLOOD GAS PO2 82.2 mmHg (80-105)
[2018-08-07 17:04] LABS: ALLENS TEST POSITIVE
[2018-08-07] MEDS ORDERED: IPRATROPIUM BR 0.02% 0.5 MG/2.5 ML VIAL.NEB. NEB PRN (17:35)
[2018-08-07] MEDS: ATORVASTATIN CA 10 MG TABLET (FP) PO SCH (21:44)
[2018-08-08] MEDS: methylPREDNISolone NA SUCC 40 MG/1 ML VIAL IVPUSH SCH ×2 (01:23→09:26)
[2018-08-08 06:54] LABS: BASO % 0.1 % (0-2.0); HEMATOCRIT 42.5 % (35.4-49); HEMOGLOBIN 14.1 GM/dL (11.7-16.9); LYMPH % 5.2 % (8-40); MCH 30.9 pg (25.7-33.7); MCHC 33.1 g/dl (32.0-35.9); MEAN CELL VOLUME 93.3 fl (80-96); MEAN PLT VOLUME 8.2 fl (7.5-11.1); MONO % 3.5 % (3.8-10.2); NEUT % 91.2 % (42.8-82.8); PLATELET COUNT 224 K/MM3 (134-434); RBC 4.56 M/mm3 (4.00-5.60); RDW 15.5 % (11.9-15.9)
[2018-08-08 07:06] LABS: BLOOD UREA NITROGEN 16.9 mg/dL (7-18); CALCIUM 8.9 mg/dL (8.5-10.1); CREATININE 0.8 mg/dL (0.55-1.3); MAGNESIUM 2.5 mg/dL (1.8-2.4); PHOSPHOROUS 2.9 mg/dL (2.5-4.9); POTASSIUM 4.2 mmol/L (3.5-5.1)
--- NOTE | 2018-08-08 08:16 | PN ---
Physical Exam: SUBJECTIVE: Patient seen and examined OBJECTIVE: Vital Signs Period Temp Pulse Resp BP Sys/Max Pulse Ox Last 24 Hr 97.4 F-97.9 F 85-94 20-20 119-130/66-77 96-96 GENERAL: The patient is awake, alert, and fully oriented, in no acute distress. HEAD: Normal with no signs of trauma. EYES: PERRL, extraocular movements intact, sclera anicteric, conjunctiva clear. No ptosis. ENT: Ears normal, nares patent, oropharynx clear without exudates, moist mucous membranes. NECK: Trachea midline, full range of motion, supple. LUNGS: Breath sounds equal, clear to auscultation bilaterally, no wheezes, no crackles, no accessory muscle use. HEART: Regular rate and rhythm, S1, S2 without murmur, rub or gallop. ABDOMEN: Soft, nontender, nondistended, normoactive bowel sounds, no guarding, no rebound, no hepatosplenomegaly, no masses. EXTREMITIES: 2+ pulses, warm, well-perfused, no edema. NEUROLOGICAL: Cranial nerves II through XII grossly intact. Normal speech, gait not observed. PSYCH: Normal mood, normal affect. SKIN: Warm, dry, normal turgor, no rashes or lesions noted Laboratory Results - last 24 hr 08/07/18 08/07/18 08/07/18 07:58 07:58 07:58 WBC 8.5 RBC 4.56 Hgb 14.1 Hct 42.3 MCV 92.7 MCH 30.9 MCHC 33.4 RDW 15.3 Plt Count 221 MPV 8.5 Absolute Neuts (auto) 7.7 Neutrophils % 90.2 H Lymphocytes % 6.0 L Monocytes % 3.7 L Eosinophils % 0.0 Basophils % 0.1 Nucleated RBC % 0 Puncture Site ABG pH ABG pCO2 at Pt Temp ABG pO2 at Pt Temp ABG HCO3 ABG O2 Sat (Measured) ABG O2 Content ABG Base Excess Flip Test Oxygen Flow Rate Sodium 138 Potassium 4.0 Chloride 105 Carbon Dioxide 26 Anion Gap 7 L BUN 14.1 Creatinine 0.8 Est GFR (CKD-EPI)AfAm 97.10 Est GFR (CKD-EPI)NonAf 83.78 POC Glucometer Random Glucose 95 Lactic Acid 3.1 H* Calcium 9.2 Phosphorus 3.1 Magnesium 2.3 08/07/18 08/07/18 08/07/18 11:44 13:30 14:26 WBC RBC Hgb Hct MCV MCH MCHC RDW Plt Count MPV Absolute Neuts (auto) Neutrophils % Lymphocytes % Monocytes % Eosinophils % Basophils % Nucleated RBC % Puncture Site Right radial ABG pH 7.50 H ABG pCO2 at Pt Temp 29.1 L ABG pO2 at Pt Temp 82.2 ABG HCO3 22.2 ABG O2 Sat (Measured) 96.8 ABG O2 Content 18.2 ABG Base Excess 0.4 Flip Test Positive Oxygen Flow Rate No Sodium Potassium Chloride Carbon Dioxide Anion Gap BUN Creatinine Est GFR (CKD-EPI)AfAm Est GFR (CKD-EPI)NonAf POC Glucometer 103 Random Glucose Lactic Acid 5.1 H* Calcium Phosphorus Magnesium 08/07/18 08/07/18 08/08/18 17:26 20:53 01:30 WBC RBC Hgb Hct MCV MCH MCHC RDW Plt Count MPV Absolute Neuts (auto) Neutrophils % Lymphocytes % Monocytes % Eosinophils % Basophils % Nucleated RBC % Puncture Site ABG pH ABG pCO2 at Pt Temp ABG pO2 at Pt Temp ABG HCO3 ABG O2 Sat (Measured) ABG O2 Content ABG Base Excess Flip Test Oxygen Flow Rate Sodium Potassium Chloride Carbon Dioxide Anion Gap BUN Creatinine Est GFR (CKD-EPI)AfAm Est GFR (CKD-EPI)NonAf POC Glucometer 112 Random Glucose Lactic Acid 3.6 H* 3.3 H* Calcium Phosphorus Magnesium 08/08/18 08/08/18 06:15 06:15 WBC 10.0 RBC 4.56 Hgb 14.1 Hct 42.5 MCV 93.3 MCH 30.9 MCHC 33.1 RDW 15.5 Plt Count 224 MPV 8.2 Absolute Neuts (auto) 9.1 H Neutrophils % 91.2 H Lymphocytes % 5.2 L Monocytes % 3.5 L Eosinophils % 0.0 Basophils % 0.1 Nucleated RBC % 0 Puncture Site ABG pH ABG pCO2 at Pt Temp ABG pO2 at Pt Temp ABG HCO3 ABG O2 Sat (Measured) ABG O2 Content ABG Base Excess Flip Test Oxygen Flow Rate Sodium 138 Potassium 4.2 Chloride 106 Carbon Dioxide 25 Anion Gap 7 L BUN 16.9 Creatinine 0.8 Est GFR (CKD-EPI)AfAm 97.10 Est GFR (CKD-EPI)NonAf 83.78 POC Glucometer Random Glucose 100 Lactic Acid Calcium 8.9 Phosphorus 2.9 Magnesium 2.5 H Active Medications Generic Name Dose Route Start Last Admin Trade Name Sanjay PRN Reason Stop Dose Admin Acetaminophen 650 mg 08/06/18 13:40 Tylenol - PO Q6H PRN PAIN LEVEL 1-5 Aspirin 81 mg 08/07/18 10:00 08/07/18 09:43 Ecotrin - PO 81 mg DAILY RONALDO Administration Atorvastatin Calcium 10 mg 08/06/18 22:00 08/07/18 21:44 Lipitor - PO 10 mg HS RONALDO Administration Budesonide/Formoterol Fumarate 1 puff 08/06/18 22:00 08/07/18 21:44 Symbicort 160/4.5mcg - IH 1 puff BID RONALDO Administration Doxycycline Hyclate 100 mg 08/06/18 18:00 08/07/18 17:28 Vibramycin - PO 100 mg BID@1000,1800 RONALDO Administration Enoxaparin Sodium 40 mg 08/07/18 10:00 08/07/18 09:43 Lovenox - SQ 40 mg DAILY RONALDO Administration Fluticasone Propionate 2 spray 08/06/18 13:42 Flonase - NS TID PRN ALLERGIES Ceftriaxone Sodium 1 gm/ 50 mls @ 200 mls/hr 08/06/18 14:15 08/07/18 09:42 Dextrose IVPB 200 mls/hr DAILY RONALDO Administration Protocol Sodium Chloride 1,000 mls @ 75 mls/hr 08/07/18 14:30 08/07/18 15:34 Normal Saline - IV 75 mls/hr ASDIR RONALDO Administration Ipratropium [place] 1 amp 08/07/18 17:35 08/07/18 20:36 Atrovent 0.02% Nebulizer - NEB 08/14/18 17:35 1 amp Q6H PRN Administration DYSPEPSIA Methylprednisolone Sodium Succinate 40 mg 08/06/18 18:00 08/08/18 01:23 Solu-Medrol - IVPUSH 40 mg Q8H-IV RONALDO Administration Pantoprazole Sodium 40 mg 08/07/18 10:00 08/07/18 09:43 Protonix - PO 40 mg DAILY RONALDO Administration ASSESSMENT/PLAN:
[2018-08-08] MEDS ORDERED: DEXTROSE 5%-WATER - 50 ML IVPB ONE (09:19)
[2018-08-08] MEDS ORDERED: cefTRIAXone SODIUM 1 GM VIAL ONE (09:19)
[2018-08-08] MEDS: DOXYCYCLINE HYCLATE 100 MG CAPSULE PO SCH (09:26)
[2018-08-08] MEDS: ASPIRIN COATED 81 MG TABLET.EC PO SCH (09:26)
[2018-08-08] MEDS: PANTOPRAZOLE 40 MG TABLET (FP) PO SCH (09:26)
[2018-08-08] MEDS: CEFTRIAXONE 1 GM in DEXTROSE 5%-WATER - 50 ML IVPB SCH (09:26)
[2018-08-08] MEDS: BUDESONIDE/FORMETEROL FUMARATE 160/4.5 mcg INHALER IH SCH (09:26)
[2018-08-08] MEDS: ENOXAPARIN NA (PORCINE) 40 MG/0.4 ML DISP.SYRIN SQ SCH (09:26)
[2018-08-08 10:09] LABS: ANISOCYTOSIS 0; MACROCYTOSIS 0; PLATELET ESTIMATE NORMAL
[2018-08-08 10:36] VITALS: BP 128/76; PULSE 109; TEMP 97.7
--- NOTE | 2018-08-08 11:27 | PN ---
Teaching Attending Note Name of Resident: Flakita Barry ATTENDING PHYSICIAN STATEMENT I saw and evaluated the patient. I reviewed the resident's note and discussed the case with the resident. I agree with the resident's findings and plan as documented. SUBJECTIVE: Patient says he is breathing much better. He reports feeling SOB with exertion but says this is his baseline. OBJECTIVE: Vital Signs Period Temp Pulse Resp BP Sys/Max Pulse Ox Last 24 Hr 97.5 F-97.9 F 85-109 20-20 119-130/66-76 96-96 HEART: S1S2, RRR LUNGS: Clear with diminished BS ABDOMEN: Soft, non-tender, non-distended, normal BS EXTREMITIES: No edema Laboratory Results - last 24 hr 08/07/18 08/07/18 08/07/18 11:44 13:30 14:26 WBC RBC Hgb Hct MCV MCH MCHC RDW Plt Count MPV Absolute Neuts (auto) Neutrophils % Neutrophils % (Manual) Band Neutrophils % Lymphocytes % Lymphocytes % (Manual) Monocytes % Monocytes % (Manual) Eosinophils % Eosinophils % (Manual) Basophils % Basophils % (Manual) Myelocytes % (Man) Promyelocytes % (Man) Blast Cells % (Manual) Nucleated RBC % Metamyelocytes Hypochromia Platelet Estimate Polychromasia Poikilocytosis Anisocytosis Microcytosis Macrocytosis Puncture Site Right radial ABG pH 7.50 H ABG pCO2 at Pt Temp 29.1 L ABG pO2 at Pt Temp 82.2 ABG HCO3 22.2 ABG O2 Sat (Measured) 96.8 ABG O2 Content 18.2 ABG Base Excess 0.4 Flip Test Positive Oxygen Flow Rate No Sodium Potassium Chloride Carbon Dioxide Anion Gap BUN Creatinine Est GFR (CKD-EPI)AfAm Est GFR (CKD-EPI)NonAf POC Glucometer 103 Random Glucose Lactic Acid 5.1 H* Calcium Phosphorus Magnesium 08/07/18 08/07/18 08/08/18 17:26 20:53 01:30 WBC RBC Hgb Hct MCV MCH MCHC RDW Plt Count MPV Absolute Neuts (auto) Neutrophils % Neutrophils % (Manual) Band Neutrophils % Lymphocytes % Lymphocytes % (Manual) Monocytes % Monocytes % (Manual) Eosinophils % Eosinophils % (Manual) Basophils % Basophils % (Manual) Myelocytes % (Man) Promyelocytes % (Man) Blast Cells % (Manual) Nucleated RBC % Metamyelocytes Hypochromia Platelet Estimate Polychromasia Poikilocytosis Anisocytosis Microcytosis Macrocytosis Puncture Site ABG pH ABG pCO2 at Pt Temp ABG pO2 at Pt Temp ABG HCO3 ABG O2 Sat (Measured) ABG O2 Content ABG Base Excess Flip Test Oxygen Flow Rate Sodium Potassium Chloride Carbon Dioxide Anion Gap BUN Creatinine Est GFR (CKD-EPI)AfAm Est GFR (CKD-EPI)NonAf POC Glucometer 112 Random Glucose Lactic Acid 3.6 H* 3.3 H* Calcium Phosphorus Magnesium 08/08/18 08/08/18 06:15 06:15 WBC 10.0 RBC 4.56 Hgb 14.1 Hct 42.5 MCV 93.3 MCH 30.9 MCHC 33.1 RDW 15.5 Plt Count 224 MPV 8.2 Absolute Neuts (auto) 9.1 H Neutrophils % 91.2 H Neutrophils % (Manual) 94.0 H Band Neutrophils % 0.0 Lymphocytes % 5.2 L Lymphocytes % (Manual) 3.0 L Monocytes % 3.5 L Monocytes % (Manual) 2 L Eosinophils % 0.0 Eosinophils % (Manual) 0.0 Basophils % 0.1 Basophils % (Manual) 0.0 Myelocytes % (Man) 0 Promyelocytes % (Man) 0 Blast Cells % (Manual) 0 Nucleated RBC % 0 Metamyelocytes 1 Hypochromia 0 Platelet Estimate Normal Polychromasia 0 Poikilocytosis 0 Anisocytosis 0 Microcytosis 0 Macrocytosis 0 Puncture Site ABG pH ABG pCO2 at Pt Temp ABG pO2 at Pt Temp ABG HCO3 ABG O2 Sat (Measured) ABG O2 Content ABG Base Excess Flip Test Oxygen Flow Rate Sodium 138 Potassium 4.2 Chloride 106 Carbon Dioxide 25 Anion Gap 7 L BUN 16.9 Creatinine 0.8 Est GFR (CKD-EPI)AfAm 97.10 Est GFR (CKD-EPI)NonAf 83.78 POC Glucometer Random Glucose 100 Lactic Acid Calcium 8.9 Phosphorus 2.9 Magnesium 2.5 H Current Medications Generic Name Dose Route Start Last Admin Trade Name Freq PRN Reason Stop Dose Admin Acetaminophen 650 mg 08/06/18 13:40 Tylenol - PO Q6H PRN PAIN LEVEL 1-5 Aspirin 81 mg 08/07/18 10:00 08/08/18 09:26 Ecotrin - PO 81 mg DAILY RONALDO Administration Atorvastatin Calcium 10 mg 08/06/18 22:00 08/07/18 21:44 Lipitor - PO 10 mg HS RONALDO Administration Budesonide/Formoterol Fumarate 1 puff 08/06/18 22:00 08/08/18 09:26 Symbicort 160/4.5mcg - IH 1 puff BID RONALDO Administration Doxycycline Hyclate 100 mg 08/06/18 18:00 08/08/18 09:26 Vibramycin - PO 100 mg BID@1000,1800 RONALDO Administration Enoxaparin Sodium 40 mg 08/07/18 10:00 08/08/18 09:26 Lovenox - SQ 40 mg DAILY RONALDO Administration Fluticasone Propionate 2 spray 08/06/18 13:42 Flonase - NS TID PRN ALLERGIES Ceftriaxone Sodium 1 gm/ 50 mls @ 200 mls/hr 08/06/18 14:15 08/08/18 09:26 Dextrose IVPB 200 mls/hr DAILY RONALDO Administration Protocol Ipratropium [place] 1 amp 08/07/18 17:35 08/07/18 20:36 Atrovent 0.02% Nebulizer - NEB 08/14/18 17:35 1 amp Q6H PRN Administration DYSPEPSIA Methylprednisolone Sodium Succinate 40 mg 08/06/18 18:00 08/08/18 09:26 Solu-Medrol - IVPUSH 40 mg Q8H-IV RONALDO Administration Pantoprazole Sodium 40 mg 08/07/18 10:00 08/08/18 09:26 Protonix - PO 40 mg DAILY RONALDO Administration ASSESSMENT AND PLAN: This is an 83 year old man with a history of CAD, CABG, hyperlipidemia, possible MV replacement, pulm HTN, COPD, tobacco use, RUL lung nodule, benign subcarinal mass, thyroid nodule who presented to the ED with SOB. 1. Acute exacerbation of COPD secondary to pneumonia - Change SoluMedrol to Prednisone taper at discharge - Continue Symbicort, ceftriaxone, doxycycline - Continue oxygen as needed - patient says he has concentrator and compressor at home but does not use oxygen 2. Lactic acidosis - Improving 3. CAD, history of CABG - Continue aspirin, Lipitor 4. Hyperlipidemia - Continue Lipitor 5. Pulmonary HTN 6. Possible history of MV replacement 7. RUL lung nodule 8. Benign subcarinal mass 9. Thyroid nodule 10. Nicotine dependence - Patient is not interested in smoking cessation 11. Disposition - Ok for discharge home today on Prednisone taper and to complete course of antibiotics
--- NOTE | 2018-08-08 11:34 | PN ---
Progress Note (short form) - Note Progress Note: s: breathing improving, no chest pain, palps, dizziness, dyspnea. Current Medications Acetaminophen (Tylenol -) 650 mg PO Q6H PRN PRN Reason: PAIN LEVEL 1-5 Aspirin (Ecotrin -) 81 mg PO DAILY [facility] Last Admin: 08/08/18 09:26 Dose: 81 mg Atorvastatin Calcium (Lipitor -) 10 mg PO HS [facility] Last Admin: 08/07/18 21:44 Dose: 10 mg Budesonide/Formoterol Fumarate (Symbicort 160/4.5mcg -) 1 puff IH BID [facility] Last Admin: 08/08/18 09:26 Dose: 1 puff Doxycycline Hyclate (Vibramycin -) 100 mg PO BID@1000,1800 [facility] Last Admin: 08/08/18 09:26 Dose: 100 mg Enoxaparin Sodium (Lovenox -) 40 mg SQ DAILY [facility] Last Admin: 08/08/18 09:26 Dose: 40 mg Fluticasone Propionate (Flonase -) 2 spray NS TID PRN PRN Reason: ALLERGIES Ceftriaxone Sodium 1 gm/ (Dextrose) 50 mls @ 200 mls/hr IVPB DAILY [facility]; Protocol Last Admin: 08/08/18 09:26 Dose: 200 mls/hr Ipratropium [place] (Atrovent 0.02% Nebulizer -) 1 amp NEB Q6H PRN PRN Reason: DYSPEPSIA Stop: 08/14/18 17:35 Last Admin: 08/07/18 20:36 Dose: 1 amp Methylprednisolone Sodium Succinate (Solu-Medrol -) 40 mg IVPUSH Q8H-IV [facility] Last Admin: 08/08/18 09:26 Dose: 40 mg Pantoprazole Sodium (Protonix -) 40 mg PO DAILY [facility] Last Admin: 08/08/18 09:26 Dose: 40 mg Vital Signs Period Temp Pulse Resp BP Sys/Max Pulse Ox Last 24 Hr 97.5 F-97.9 F 85-109 20-20 119-130/66-76 96-96 Constitutional: Yes: No Distress, Calm Eyes: Yes: Conjunctiva Clear, EOM Intact HENT: Yes: Normocephalic Neck: Yes: Trachea Midline Respiratory: Yes: Other (decreased breath sounds b/l c/w COPD, no active wheezing or rales) Gastrointestinal: Yes: Soft (NT) Cardiovascular: Yes: Regular Rate and Rhythm JVD: No Carotid Bruit: No Murmur: Yes: Grade 1 (EMILIANO RSB with preserved S2) Edema: No Peripheral Pulses WNL: Yes Neurological: Yes: Alert, Oriented ...Motor Strength: WNL Psychiatric: Yes: WNL NSR 96bpm, APCs, RBBB Stress Echo: Report Reviewed Prior Cardiac Procedures: CABG Ejection Fraction %: LVEF > or = 40 % Imaging - Results Chest X-ray: Image Reviewed EKG: Image Reviewed Assessment/Plan IMP: 1. PNA 2. 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 CAD w/ remote h/o CABG 4. Carotid atherosclerosis s/p b/l CEAs 5. PAD, asx 6. Active smoker 7. Aortic valve sclerosis REC: 1. Continued Rx of PNA as per PMD and Pulm w/ Abx, supplimental O2 and Nebs. Steroid taper. 2. DVT prophylaxis. 3. Continued low dose ASA and statin for his h/o CAD and Carotid disease with routine outpatient surveillance Vascular ([facility]). 4. Currently no ischemic sx with last stress 01/2015, no ischemia. 5. There is likely PAD, with prior abnl outpatient ABIs, asx. Smoking cessation / ASA/Statin therapy. 6. Aortic sclerosis noted, with physical exam revealing preserved crisp S2. Doubt significant . Study can be repeated as outpatient with special attention to aortic valve gradients. 7. Outpatient f/u w/ Dr. Hernández 1-2 weeks after discharge. PHTN and RV dysfx is chronic- prior secondary w/u including V/Q scan done with results indicating COPD as primary cause of PHTN. Smoking cessation/home O2 recommended.
--- NOTE | 2018-08-08 11:42 | DS ---
Physical Exam: SUBJECTIVE: Patient seen and examined. Dressed seating in bed, asking to be discharged home. Not on oxygen, not short of breath, no chest pain, denies any distress. Pt reports being unable to be on 24hr oxygen as his portable oxygen only lasts an hour, and he is away from home 7hrs a day visiting his demented in [facility]. Pt is still independent in ADLS, has to go home to his animals and is a current everyday smoker (about 1PPd for 70years) refuses to quit. OBJECTIVE: Vital Signs Period Temp Pulse Resp BP Sys/Max Pulse Ox Last 24 Hr 97.5 F-97.9 F 85-109 20-20 119-130/66-76 96-96 PHYSICAL EXAM GENERAL: The patient is awake, alert, and fully oriented, in no acute distress. EYES: PERRL, extraocular movements intact ENT: moist mucous membranes. NECK: supple. LUNGS: Breath sounds equal, clear to auscultation bilaterally, no wheezes, no crackles HEART: Regular rate and rhythm, S1, S2 ABDOMEN: Soft, nontender, nondistended, normoactive bowel sounds EXTREMITIES: 2+ pulses, warm, well-perfused, no edema. NEUROLOGICAL: Cranial nerves II through XII grossly intact. Normal speech, normal gait PSYCH: Normal mood, normal affect. SKIN: Warm, dry, normal turgor, no rashes or lesions noted. LABS Laboratory Results - last 24 hr 08/07/18 08/07/18 08/07/18 11:44 13:30 14:26 WBC RBC Hgb Hct MCV MCH MCHC RDW Plt Count MPV Absolute Neuts (auto) Neutrophils % Neutrophils % (Manual) Band Neutrophils % Lymphocytes % Lymphocytes % (Manual) Monocytes % Monocytes % (Manual) Eosinophils % Eosinophils % (Manual) Basophils % Basophils % (Manual) Myelocytes % (Man) Promyelocytes % (Man) Blast Cells % (Manual) Nucleated RBC % Metamyelocytes Hypochromia Platelet Estimate Polychromasia Poikilocytosis Anisocytosis Microcytosis Macrocytosis Puncture Site Right radial ABG pH 7.50 H ABG pCO2 at Pt Temp 29.1 L ABG pO2 at Pt Temp 82.2 ABG HCO3 22.2 ABG O2 Sat (Measured) 96.8 ABG O2 Content 18.2 ABG Base Excess 0.4 Flip Test Positive Oxygen Flow Rate No Sodium Potassium Chloride Carbon Dioxide Anion Gap BUN Creatinine Est GFR (CKD-EPI)AfAm Est GFR (CKD-EPI)NonAf POC Glucometer 103 Random Glucose Lactic Acid 5.1 H* Calcium Phosphorus Magnesium 08/07/18 08/07/18 08/08/18 17:26 20:53 01:30 WBC RBC Hgb Hct MCV MCH MCHC RDW Plt Count MPV Absolute Neuts (auto) Neutrophils % Neutrophils % (Manual) Band Neutrophils % Lymphocytes % Lymphocytes % (Manual) Monocytes % Monocytes % (Manual) Eosinophils % Eosinophils % (Manual) Basophils % Basophils % (Manual) Myelocytes % (Man) Promyelocytes % (Man) Blast Cells % (Manual) Nucleated RBC % Metamyelocytes Hypochromia Platelet Estimate Polychromasia Poikilocytosis Anisocytosis Microcytosis Macrocytosis Puncture Site ABG pH ABG pCO2 at Pt Temp ABG pO2 at Pt Temp ABG HCO3 ABG O2 Sat (Measured) ABG O2 Content ABG Base Excess Flip Test Oxygen Flow Rate Sodium Potassium Chloride Carbon Dioxide Anion Gap BUN Creatinine Est GFR (CKD-EPI)AfAm Est GFR (CKD-EPI)NonAf POC Glucometer 112 Random Glucose Lactic Acid 3.6 H* 3.3 H* Calcium Phosphorus Magnesium 08/08/18 08/08/18 06:15 06:15 WBC 10.0 RBC 4.56 Hgb 14.1 Hct 42.5 MCV 93.3 MCH 30.9 MCHC 33.1 RDW 15.5 Plt Count 224 MPV 8.2 Absolute Neuts (auto) 9.1 H Neutrophils % 91.2 H Neutrophils % (Manual) 94.0 H Band Neutrophils % 0.0 Lymphocytes % 5.2 L Lymphocytes % (Manual) 3.0 L Monocytes % 3.5 L Monocytes % (Manual) 2 L Eosinophils % 0.0 Eosinophils % (Manual) 0.0 Basophils % 0.1 Basophils % (Manual) 0.0 Myelocytes % (Man) 0 Promyelocytes % (Man) 0 Blast Cells % (Manual) 0 Nucleated RBC % 0 Metamyelocytes 1 Hypochromia 0 Platelet Estimate Normal Polychromasia 0 Poikilocytosis 0 Anisocytosis 0 Microcytosis 0 Macrocytosis 0 Puncture Site ABG pH ABG pCO2 at Pt Temp ABG pO2 at Pt Temp ABG HCO3 ABG O2 Sat (Measured) ABG O2 Content ABG Base Excess Flip Test Oxygen Flow Rate Sodium 138 Potassium 4.2 Chloride 106 Carbon Dioxide 25 Anion Gap 7 L BUN 16.9 Creatinine 0.8 Est GFR (CKD-EPI)AfAm 97.10 Est GFR (CKD-EPI)NonAf 83.78 POC Glucometer Random Glucose 100 Lactic Acid Calcium 8.9 Phosphorus 2.9 Magnesium 2.5 H CXR images, persistent RLL Infiltrate, follow up official read EKG: NSR, RBBB, QTC 520 2D echo 09/2016 (from PCP's office): LV function size/function normal, EF 55-60%, RV systolic fuction atleast mild to moderately reduced, mild enlarged right atrium, moderate TR, atleast mild to mod Pul HTN, RV systolic pressure 51 mm hg HOSPITAL COURSE: Date of Admission:08/06/18 Date of Discharge: 08/08/18 Pt is an 83 yo m with PMHx of CAD s/p CABG/MVR(per CT Chest read), COPD ( emphysema/Bronchiectasis) on prn home oxygen (not compliant), active heavy smoker, RVH/PAH/Mod TR, dizziness/orthostatic hypotension (off BP meds), HLD, RUL Pul nodule, Subcarinal mass s/p biopsy x2 (Benign), thyroid nodule, admitted to [facility] on 08/03 with RLL PNA/COPD exac, left AMA on 08/04, when was given augmentin/Doxycyline and prednisone taper, comes back today with persistent dyspnea. Pt was continued on ceftriaxone and doxycycline while admitted, received solumedrol taper and nebulizer treatment. Noted to have an elevated lactic acid that trended down but was likely related to hypoxia from respiratory failurethan sepsis. He was placed on gentle iv hydration at 75/hr but tolerated PO intake. Patient's oxygenation status improved and he was not dyspneic at rest off oxygen. He was recommended by PT to use oxygen when he ambulates. Pt was discharged home to complete his prior prescribed antibiotics - augmentin/doxycycline and prednisone taper. He was also prescribed nebulizers for outpatient use. He was counselled on smoking cessation and supplemental oxygen use and discharged, to follow up with his superintendent menagerie, dinkey engineer and primary care doctor as an outpatient. Minutes to complete discharge: 45 Discharge Summary Reason For Visit: CHRONIC COPD Current Active Problems COPD exacerbation (Acute) Lactate blood increased (Acute) Condition: Improved - Instructions Diet, Activity, Other Instructions: You came in for difficulty breathing and you have since improved Physical therapy recommends that you use oxygen while moving around. We are recommending smoking cessation, supplemental oxygen use especially with ambulation Medications We are prescribing more liquids for inhaling to help with your breathing ( nebulizers) You will continue on a steroid taper, you had taken 60mg for one day, continue prednisone 60 mg daily for 2 days, then 50 mg daily for 3 days, then 40 mg daily for 3 days, then 30 mg daily for 3 days and 20 mg daily for 3 days You will also be discharged to complete a course of antibiotics- doxycycline and augmentin (you will complete the prescription you picked up on August 04) You will continue on aspirin and your cholesterol medication Please take your medications as prescribed You need to follow up as an outpatient with a dinkey engineer and superintendent menagerie within one week Follow up with your primary care doctor in one week If you feel your symptoms are not getting better, please return to the nearest emergency room Referrals: Basim Ortiz MD [Primary Care Provider] - Marcelo Lucas MD [Staff Physician] - 1 Week Oscar Huber MD, MD [Staff Physician] - 1 Week Disposition: HOME - Home Medications Comprehensive Discharge Medication List: Ambulatory Orders Albuterol Sulfate [Proair Hfa] 2 puff IH Q4H PRN 08/03/18 Aspirin [Aspirin EC] 81 mg PO DAILY 08/03/18 Budesonide/Formeterol Fumarate [SYMBICORT 160/4.5mcg -] 1 inh PO BID 08/03/18 Fluticasone Propionate [Flonase Allergy Relief] 9.9 ml NS TID PRN 08/03/18 Pravastatin Sodium 20 mg PO HS 08/03/18 Amoxicillin/Potassium Clav [Augmentin 875-125 Tablet] 1 each PO BID #14 tablet 08/04/18 Doxycycline Hyclate 100 mg PO BID #14 capsule 08/04/18 Prednisone See Taper PO ASDIR #65 tablet 08/04/18 Albuterol 2.5/Ipratropium 0.5 [Duoneb -] 1 neb IH QID PRN 90 Days #6 box Pantoprazole Sodium [Protonix -] 40 mg PO DAILY #30 tablet.ec 07/03/19 This patient is new to me today: Yes Date on this admission: 08/09/18 Emergency Visit: No Critical Care patient: No - Discharge Referral Referred to [facility] Med P.C.: No
== END 2018-08-08 13:23 | disposition home or self-care (01) | DRG 193 ==
LOC: JER 10:15 → JERBED 13:12 → J7W 17:09
PROVIDERS: ADMIT Hospitalist; ATTEND Internal Medicine
PROC: 3E0F7GC Introduction of Other Therapeutic Substance into Respiratory Tract, Via Natural or Artificial Opening (ICD-10-PCS; principal; 2018-08-06)
DX: J18.9 Pneumonia, unspecified organism (principal); J96.22 Acute and chronic respiratory failure with hypercapnia; J96.21 Acute and chronic respiratory failure with hypoxia; R64 Cachexia; E87.2 Acidosis; J43.9 Emphysema, unspecified; J47.9 Bronchiectasis, uncomplicated; I10 Essential (primary) hypertension; E78.5 Hyperlipidemia, unspecified; F17.210 Nicotine dependence, cigarettes, uncomplicated; Z68.24 Body mass index [BMI] 24.0-24.9, adult; E86.0 Dehydration; I36.1 Nonrheumatic tricuspid (valve) insufficiency; I35.8 Other nonrheumatic aortic valve disorders; I45.10 Unspecified right bundle-branch block; I45.81 Long QT syndrome; R91.1 Solitary pulmonary nodule; I25.2 Old myocardial infarction; Z95.1 Presence of aortocoronary bypass graft; I25.10 Atherosclerotic heart disease of native coronary artery without angina pectoris; I27.20 Pulmonary hypertension, unspecified; Z99.81 Dependence on supplemental oxygen; Z91.19 Patient's noncompliance with other medical treatment and regimen; I73.9 Peripheral vascular disease, unspecified
CPT/HCPCS: 36415; 36600; 71045-TC-FY; 80048; 80053; 82550; 82553; 82803; 82962; 83605; 83735; 83880; 84100; 84484; 85025; 85610; 85730; 87899; 93005; 93010; 93306-TC; 94640; 97116-GP; 97161-GP; 99282-25; J7030

== ENCOUNTER 2021-02-10 04:33 | Day surgery (SDC) | payer OTHER ==
[2021-02-08 13:11] VITALS: BMI 24.2
[~2021-02-10 04:33] MED LIST: ACETAMINOPHEN 325 MG TABLET (FP) PO PRN; BSS (NA/CA/MG/K) BALANCED SALT SOLUTION OPHTH SOLN 15 ML BOTTLE OD ONE; BUPIVACAINE HCL/PF 0.75% 10 ML VIAL NR ONE; LIDOCAINE HCL/PF 2% SDV 5ML VIAL INF ONE; POVIDONE-IODINE 5% OPHTHALMIC PREP 30 ML SOLUTION IO ONE
[2021-02-10] MEDS ORDERED: LIDOCAINE HCL/PF 1% SDV 5ML VIAL ONE (07:30)
[2021-02-10] MEDS ORDERED: POVIDONE-IODINE 5% OPHTHALMIC PREP 30 ML SOLUTION ONE (07:30)
[2021-02-10] MEDS ORDERED: LIDOCAINE HCL 2% (20ML MULTI-DOSE VIAL) ONE ×2 (07:31→07:35)
[2021-02-10] MEDS ORDERED: BUPIVACAINE HCL/PF 0.75% 10 ML VIAL ONE (07:44)
[2021-02-10] MEDS ORDERED: CHONDROITIN SU A/HYALUR SOD 1 KIT ONE (07:48)
[2021-02-10] MEDS ORDERED: PHENYLEPHRINE 2.5% OPTHALMIC DROP BOTTLE ONE (10:01)
[2021-02-10] MEDS ORDERED: KETOROLAC TROMETHAMINE 0.5% EYE DROP 1 DROP DROPS ONE (10:01)
[2021-02-10] MEDS ORDERED: CYCLOPENTOLATE HCL 1% OPHTH SOLN 2 ML BOTTLE ONE (10:01)
[2021-02-10] MEDS ORDERED: TROPICAMIDE 1% OPHTH SOLN 15 ML BOTTLE ONE (10:01)
[2021-02-10] MEDS ORDERED: OFLOXACIN 0.3% OPHTHALMIC SOLUTION 5 ML BOTTLE ONE (10:01)
[2021-02-10] MEDS: TROPICAMIDE 1% OPHTH SOLN 15 ML BOTTLE OP SCH ×3 (10:10→10:20)
[2021-02-10] MEDS: OFLOXACIN 0.3% OPHTHALMIC SOLUTION 5 ML BOTTLE OP SCH ×3 (10:10→10:20)
[2021-02-10] MEDS: CYCLOPENTOLATE HCL 1% OPHTH SOLN 2 ML BOTTLE OP SCH ×3 (10:10→10:20)
[2021-02-10] MEDS: KETOROLAC TROMETHAMINE 0.5% EYE DROP 1 DROP DROPS OP SCH ×3 (10:10→10:20)
[2021-02-10] MEDS: PHENYLEPHRINE 2.5% OPHTH SOLN 15 ML BOTTLE OP SCH ×3 (10:10→10:20)
[2021-02-10] MEDS ORDERED: BUPIVACAINE HCL/PF 0.75% 10 ML VIAL NR ONE (10:58)
[2021-02-10] MEDS ORDERED: LIDOCAINE HCL/PF 2% SDV 5ML VIAL INF ONE (10:58)
[2021-02-10] MEDS ORDERED: POVIDONE-IODINE 5% OPHTHALMIC PREP 30 ML SOLUTION IO ONE (11:00)
[2021-02-10] MEDS ORDERED: BSS (NA/CA/MG/K) BALANCED SALT SOLUTION OPHTH SOLN 15 ML BOTTLE OD ONE (11:04)
[2021-02-10] MEDS ORDERED: LIDOCAINE HCL 1% PRESERVATIVE FREE - 30ML VIAL IO ONE (11:05)
[2021-02-10] MEDS ORDERED: CHONDROITIN SU A/HYALUR SOD 1 KIT IO ONE (11:05)
[2021-02-10] MEDS ORDERED: EPINEPHrine/PF 1 MG/1 ML (1:1,000) AMPULE SQ ONE (11:11)
[2021-02-10 11:59] VITALS: PULSE 63
[2021-02-10 12:34] VITALS: BP 154/93; TEMP 98.4
== END 2021-02-10 12:30 | disposition home or self-care (01) ==
LOC: JASU-SURG 04:33
PROVIDERS: ATTEND Ophthalmology
PROC: 08RJ3JZ Replacement of Right Lens with Synthetic Substitute, Percutaneous Approach (ICD-10-PCS; principal; 2021-02-10 11:00)
DX: H26.9 Unspecified cataract (principal)

== ENCOUNTER 2021-02-24 04:34 | Day surgery (SDC) | payer OTHER ==
[2021-02-18 13:45] VITALS: BMI 24.2
[~2021-02-24 04:34] MED LIST changes: -BSS (NA/CA/MG/K) BALANCED SALT SOLUTION OPHTH SOLN 15 ML BOTTLE OD ONE; -BUPIVACAINE HCL/PF 0.75% 10 ML VIAL NR ONE; +CYCLOPENTOLATE HCL 1% OPHTH SOLN 2 ML BOTTLE OP SCH; +KETOROLAC TROMETHAMINE 0.5% EYE DROP 1 DROP DROPS OP SCH; -LIDOCAINE HCL/PF 2% SDV 5ML VIAL INF ONE; +OFLOXACIN 0.3% OPHTHALMIC SOLUTION 5 ML BOTTLE OP SCH; +PHENYLEPHRINE 2.5% OPHTH SOLN 15 ML BOTTLE OP SCH; -POVIDONE-IODINE 5% OPHTHALMIC PREP 30 ML SOLUTION IO ONE; +TROPICAMIDE 1% OPHTH SOLN 15 ML BOTTLE OP SCH
[2021-02-24] MEDS ORDERED: CHONDROITIN SU A/HYALUR SOD 1 KIT ONE (07:13)
[2021-02-24] MEDS ORDERED: PHENYLEPHRINE 2.5% OPHTH SOLN 15 ML BOTTLE OS ONE ×3 (08:30→08:40)
[2021-02-24] MEDS ORDERED: TROPICAMIDE 1% OPHTH SOLN 15 ML BOTTLE OS ONE ×3 (08:30→08:40)
[2021-02-24] MEDS ORDERED: OFLOXACIN 0.3% OPHTHALMIC SOLUTION 5 ML BOTTLE OS ONE ×3 (08:30→08:40)
[2021-02-24] MEDS ORDERED: CYCLOPENTOLATE HCL 1% OPHTH SOLN 2 ML BOTTLE OS ONE ×3 (08:30→08:40)
[2021-02-24] MEDS ORDERED: KETOROLAC TROMETHAMINE 0.5% EYE DROP 1 DROP DROPS OS ONE ×3 (08:30→08:40)
[2021-02-24] MEDS ORDERED: GLYCOPYRROLATE 0.2 MG/1 ML VIAL ONE (10:07)
[2021-02-24] MEDS ORDERED: LIDOCAINE HCL/PF 2% SDV 5ML VIAL INF ONE (10:28)
[2021-02-24] MEDS ORDERED: BUPIVACAINE HCL/PF 0.75% 10 ML VIAL RB ONE (10:28)
[2021-02-24] MEDS ORDERED: POVIDONE-IODINE 5% OPHTHALMIC PREP 30 ML SOLUTION OS ONE (10:30)
[2021-02-24] MEDS ORDERED: LIDOCAINE HCL 1% PRESERVATIVE FREE - 30ML VIAL IO ONE (10:36)
[2021-02-24] MEDS ORDERED: BSS (NA/CA/MG/K) BALANCED SALT SOLUTION OPHTH SOLN 15 ML BOTTLE IO ONE (10:37)
[2021-02-24] MEDS ORDERED: CHONDROITIN SU A/HYALUR SOD 1 KIT IO ONE (10:39)
[2021-02-24] MEDS ORDERED: EPINEPHrine/PF 1 MG/1 ML (1:1,000) AMPULE IO ONE (10:42)
[2021-02-24 11:41] VITALS: BP 160/85; PULSE 85; TEMP 97.2
[2021-02-24] MEDS ORDERED: TETRACAINE 0.5% OPHTH SOLN 2 ML BOTTLE ONE (12:00)
[2021-02-24] MEDS ORDERED: POVIDONE-IODINE 5% OPHTHALMIC PREP 30 ML SOLUTION ONE (12:00)
[2021-02-24] MEDS ORDERED: EPINEPHrine/PF 1 MG/1 ML (1:1,000) AMPULE ONE (12:00)
== END 2021-02-24 12:40 | disposition home or self-care (01) ==
LOC: JASU-SURG 04:34
PROVIDERS: ATTEND Ophthalmology
PROC: 08RK3JZ Replacement of Left Lens with Synthetic Substitute, Percutaneous Approach (ICD-10-PCS; principal; 2021-02-24 10:00)
DX: H26.9 Unspecified cataract (principal)

== ENCOUNTER 2021-12-17 07:22 | Emergency (ER) | payer OTHER ==
[2021-12-17 07:35] VITALS: TEMP 97.8; BMI 23.3
[2021-12-17 09:21] LABS: EOS % 1.8 % (0-4.5); HEMATOCRIT 48.4 % (35.4-49); HEMOGLOBIN 16.3 GM/dL (11.7-16.9); LYMPH % 18.4 % (8-40); MCH 31.4 pg (25.7-33.7); MCHC 33.6 g/dl (32.0-35.9); MEAN CELL VOLUME 93.4 fl (80-96); MEAN PLT VOLUME 8.7 fl (7.5-11.1); MONO % 8.9 % (3.8-10.2); NEUT % 69.9 % (42.8-82.8); PLATELET COUNT 146 10^3/uL (134-434); RBC 5.18 M/mm3 (4.00-5.60); RDW 16.4 % (11.9-15.9); WHITE BLOOD COUNT 4.7 K/mm3 (4.0-10.0)
[2021-12-17 09:27] LABS: INR 1.18 (0.83-1.09); PROTHROMBIN TIME (PATIENT) 13.6 SEC (9.7-13.0)
[2021-12-17 09:29] LABS: ACTIVATED PTT 41.2 SECONDS (25.2-36.5)
[2021-12-17 09:52] LABS: ALBUMIN 3.4 g/dl (3.4-5.0); BLOOD UREA NITROGEN 25.1 mg/dL (7-18); CALCIUM 8.6 mg/dL (8.5-10.1)
[2021-12-17 09:54] LABS: MAGNESIUM 2.2 mg/dL (1.8-2.4)
[2021-12-17 09:55] LABS: CREATININE 0.9 mg/dL (0.55-1.3)
[2021-12-17 09:56] LABS: BILIRUBIN,TOTAL 0.7 mg/dL (0.2-1); TOT PROT 6.8 g/dl (6.4-8.2)
[2021-12-17 09:59] LABS: N-TERMINAL BNP 3611.9 pg/ml (5-450)
[2021-12-17 13:30] VITALS: BP 144/109; PULSE 89; RESP 24
== END 2021-12-17 13:40 | disposition home or self-care (01) ==
LOC: JER 07:22
DX: I87.2 Venous insufficiency (chronic) (peripheral) (principal)
CPT/HCPCS: 0241U-QW; 36415; 71045-TC-FY; 80053; 83735; 83880; 84484; 85025; 85610; 85730; 93005; 93010; 93970-TC; 99284-25